=== PATIENT | female | born 1945 | race Caucasian/White ===

== ENCOUNTER 2023-12-03 12:44 | Outpatient (CLI) | payer MEDICARE, SELFPAY ==
--- NOTE | 2023-12-03 12:49 | US_ITS ---
FINAL REPORT TECHNIQUE: Sonographic images of the thyroid were obtained. CLINICAL HISTORY: H/O partial Right thyroidectomy hyperthyroidism FINDINGS: THYROID ULTRASOUND The right lobe of the thyroid is surgically absent. The isthmus measures 2.3 cm. The left lobe of the thyroid measures 4.7 cm in length. It is somewhat enlarged and has not heterogeneous echotexture. Multiple nodules are seen in the left lobe. The largest nodule measures 13 x 10 x 9 mm and is solid and isoechoic. This is consistent with a TI-RADS 3 nodule. Multiple other smaller nodules are seen. Findings are most consistent with a multinodular goiter. IMPRESSION: Right lobe of the thyroid is surgically absent. Appearance of the left lobe of the thyroid is most consistent with a multinodular goiter. 12-month follow-up is recommended. Reviewed, Interpreted and Dictated by Zac Kumari III, MD Transcribed by Zoey Eduardo Authenticated and [facility]
== END 2023-12-03 23:59 | disposition home or self-care (01) ==
LOC: RAD 12:44
PROVIDERS: PCP Family Medicine; Visit Provider Nurse Practitioner
DX: E05.90 Thyrotoxicosis, unspecified without thyrotoxic crisis or storm (principal)
CPT/HCPCS: 76536

== ENCOUNTER 2024-12-22 13:32 | Outpatient (CLI) | payer MEDICARE, SELFPAY ==
--- OUTSIDE RECORDS SUMMARY | 2024-12-22 13:35 | XMS_ITS | Continuity of Care Document ---
Author Organization [facility] Address [address] [place] [address] Care Team Providers Care Maintenance Carpenter Name Role Phone RUSSELL DESAI Primary Care Provider [phone] Assessment No assessment recorded. Plan of Treatment Reminders Order Date Submit Date Provider Last Modified By Organization Details Last Modified Time Details Appointments [facility] 60 2024 12:00P LIANA MOTTA Not available Not available Not available Lab unlisted lab - atn profile 2024 025 [facility], [address], [address], [place], [address], 11/10/2024 07:35:08 phosphory lated tau 217, QN, [place], serum or plasma 2024 025 [email or web address] [facility], [address], [address], [place], [address], 11/10/2024 07:35:08 Referral None recorded. Procedures None recorded. Surgeries None recorded. Imaging None recorded. Medication Orders risperido ne 0.25 mg tablet 2024 025 [facility], [address] [place] [address], [phone], 11/03/2024 17:03:31 Patient TargetsNo targets recorded. Patient InstructionsNo instructions recorded. Reason for Referral None Reported. Results Created Date Observation Date Name Description Value Unit Range Abnormal Flag Note LastModifiedBy Organization Detail LastModifiedTime 11/04/1911/03/2024 PHOSP HORYL ATED TAU 217, PLASM A note Unles s other cornelius noted testi ng perfo rmed at: [facility] os[facility]do [address] [place] [address] [phone] John preciado MD CLIA: [id number] Not Available [facility] (Lab Registration) [address] [place] [address] , [place], [address], 11/09/2024 02:10:17 11/04/1911/09/2024 PHOSP HORYL ATED TAU 217, PLASM A phosphorylat ed tau 217 0.17 pg/mL 0.00-0 .18 Speci men Comme nt: Test( s) 76469 1-p-t au217 Speci men Comme nt: was devel oped and its perfo rmanc e aristides cte risti cs Speci men Comme nt: deter mined by [facility]. It has not been vijaya ared or appro justin Speci men Comme nt: by the Food and Drug Admin istra tion. Clini jordan cutof f value was estab lishe d using sampl es from a patie nt jennifer calleri zed with amylo id PET data. A p-tau 217 value of >0.18 is a repor diana oral parks r for beta amylo id patho logy, a nd can be used to facil itate biolo gical ident ifica tion of Alzhe natasha' s disea se (1). p-tau 217 has also been used in clini jordan trial s to monit or patie nts on anti- amylo id thera py (2,3) . Test perfo rmed by Fujir ebio Lumip ulse chemi lumin escen t e nzyme immun oassa y (CLEI A). Value s obtai neda with diffe rent metho ds canno t be used inter suarez eably . The valid ated limit of quant ifica tion is 0.06 pg/mL . Assay detec tion limit is 0.03 pg/mL . Not Available [facility] (Lab Registration) [address] , [place], [address], 11/09/2024 02:10:17 11/04/19 25 11/09/2024 PHOSP HORYL ATED TAU 217, PLASM A footnotes Commen t . 1. Mata Daily, et al. Diag nosti c Accur acy of a Plasm a Phosp horyl ated Tau 217 Immun oassa y for Alzhe natasha Disea se Patho logy. CARMELA neuro logy (2023 ). 2. Mata Daily, et al. Diff erent ial roles of A42/4 0, p-tau 231 and p-tau 217 for Alzhe natasha' s trial selec tion and disea se monit oring . Natur e medic ine 28.12 (2021 ): 2555- 2562. 3. Anjali de guzman MJ, Shawna M, Jeromy cadet [place], et al. Asso ciati on of Sirena ireland Treat ment With Explo rator y Plasm a Bioma rkers in Early Sympt omati c Alzhe natasha Disea se: A Secon kortney Marylu sis of the TRAIL BLAZE R-ALZ Rando mized Clini jordan Trial . CARMELA Neuro l. 2021; 79(12 ):125 0-125 9. Perfo rmed at: L[facility] - [employer] [address] [facility], [facility] [place] [address] Lab Direc tor: Jg Yoo MD, Phone : [phone] Not Available [facility] (Lab Registration) [address] , [place], [address], 11/09/2024 02:10:17 11/04/19 25 11/03/2024 ATN PROFI LE information: COMMEN T Beta- amylo id 42 and Beta- amylo id 40: Plasm a beta- amylo id 1-42/ 1-40 ratio s less than or equal to 0.[address] a highe r proba bilit y of a patie nt being clini elder diagn osed with Alzhe natasha' s Disea se (AD), while value s above 0.[address] a lower proba bilit y of AD diagn osis. Preci se plasm a testi ng of Beta- amylo id 42 and Beta- amylo id 40 has demon strat ed macrina rable effec tiven ess to tradi benja l cereb rospi nal fluid testi ng and amylo id posit madeline emiss ion tomog katja (PET) scans . When asses sing the risk of AD patho logy as the under lying cause for mild cogni tive impai rment (MCI) or demen tia, it is impor tant to consi tari vario us facto rs such as medic al and famil y histo ry, nutri benja l defic iency bioma rkers , neuro imagi ng, and physi jordan, neuro logic al, and neuro psych ologi jordan exami natio ns. These tests were devel oped and their perfo rmanc e aristides cteri stics deter mined by [facility]. They have not been clear ed or appro justin by the Food and Drug Admin istra tion. * METHO DOLOG Y: Beta- amylo id 42/40 Ratio : Sysme x Chemi lumin escen ce Enzym e Immun oassa y (CLEI A) NfL and p-tau 181: Tests perfo rmed by [employer]iot Diagn ostic s Elect nito milum inesc ence Immun oassa y (ECLI A). Value s obtai neda with diffe rent metho ds canno t be used inter erick bejarano . These tests were devel oped and their perfo rmanc e aristides cteri stics deter mined by [facility]. They have not been clear ed or appro justin by the Food and Drug Admin istra tion. * p-tau 181 INFOR MATIO N: For indiv idual 0-55 years of age: 0.00- 0.95 pg/mL Refer ence inter nighat is based on a popul ation of [facility] indiv idual s aged 20 to 55 years For indiv idual great er than 55 years of age: 0.00- 0.97 pg/mL Resul ts great er than the clini jordan cut-o ff of 0.97 pg/mL in patie nts great er than 55 years of age are corre lated with Abeta amylo id patho logy as deter mined by amylo id PET imagi ng. * 1. Inter preta tion comme nts are based on a conse nsus betwe en Natio nal Insti tute for Age and the Inter natio n Worki ng Group recom menda tions for ATN panel inter preta tion publi shed by Reji et al 2017 and updat ed in Kim corley et al 2020. * Kim corley H, Franco barroso J, Cele Morris, Freeman P, Reji VILLAGRAN Jr, Nishi Hoffman oping the ATX(N ) class ifica tion for use acros s the Alzhe natasha disea se monique niuum . Marycarmen Rev Neuro l. 2020;1 7(9): 580-5 89. Reji VILLAGRAN Jr, Carmella tt DA, Cele Morris, et al. A/T/N : An unbia sed descr iptiv e class ifica tion schem e for Alzhe natasha disea se bioma rkers . Neuro logy. 2015Jan 01;87( 5):53 9-547 . Not Available [facility] ([facility]) [address] [place], [address], 11/16/2024 04:08:46 11/04/19 25 11/08/2024 ATN PROFI LE A -- beta-amyloid 42/40 ratio 0.122 >0.102 Not Available [facility] ([facility]) [address] [place], [address], 11/16/2024 04:08:46 11/04/19 25 11/08/2024 ATN PROFI LE beta-amyloid 42 27.45 pg/mL Not Available [facility] ([facility]) [address] [place], [address], 11/16/2024 04:08:46 11/04/19 25 11/08/2024 ATN PROFI LE beta-amyloid 40 225.26 pg/mL Not Available [facility] ([facility]) [address] [facility], [place], [address], 11/16/2024 04:08:46 11/04/1911/15/2024 ATN PROFI LE T -- P-lnn552 0.96 pg/mL 0.00-0 .97 Not Available [facility] ([facility]) [address] [facility], [place], [address], 11/16/2024 04:08:46 11/04/19 25 11/15/2024 ATN PROFI LE N -- nfl, plasma 7.63 pg/mL 0.00-6 .04 above high normal Not Available [facility] ([facility]) [address] [facility], [place], [address], 11/16/2024 04:08:46 11/04/19 25 11/16/2024 ATN PROFI LE atn summary[1] COMMEN T A- T- N+ A high NfL josé ntrat ion was obser justin. A nina l beta- amylo id 42/40 ratio and nina l pTau1 81 josé ntrat ion were obser justin at this time. These resul ts are not consi stent with the prese nce of Alzhe natasha' s- relat ed patho logy, but may indic ate patho logy of anoth er condi tion. Addit ional asses sment s may be neces dominguez. These tests are inten ded to be used only in the lawanda xt of clini jordan care. Not Available [facility] ([facility]) [address] [facility], [place], [address], 11/16/2024 04:08:46 11/04/1911/05/2024 P-TAU 217 [id number] COMMEN T pg/mL Test not perfo rmed. One speci men was submi tted with reque sts for multi ple tests . The reque sted testi ng requi res a separ ate speci men for each test reque sted. Test not perfo rmed. Attem pts to conta ct your facil ity were unsuc cessf ul. Clini jordan cutof f value was estab lishe d using sampl es from a patie nt cohor t aristides cteri zed with amylo id PET data. A p-tau 217 value of >0.18 is a repor diana surro gate marke r for beta amylo id patho logy, and can be used to facil itate biolo gical ident ifica tion of Alzhe natasha' s disea se (1). p-tau 217 has also been used in clini jordan trial s to monit or patie nts on anti- amylo id thera py (2,3) . Test perfo rmed by Fujir ebio Lumip ulse chemi lumin escen t enzym e immun oassa y (CLEI A). Value s obtai neda with diffe rent metho ds canno t be used inter suarez eably . The valid ated limit of quant ifica tion is 0.06 pg/mL . Assay detec tion limit is 0.03 pg/mL . Not Available [facility] [address] [place] [address], [address], 11/16/2024 04:08:47 11/04/1911/05/2024 P-TAU 217 footnotes CLINICAL DIRECTOR Not Available [facility] [address] [place] [address], [address], 11/16/2024 04:08:47 11/04/19 25 11/05/[address] PROBL EM request problem COMMEN T Test not perfo rmed. One speci men was submi tted with reque sts for multi ple tests . The reque sted testi ng requi res a separ ate speci men for each test reque sted. Test not perfo rmed. Attem pts to conta ct your facil ity were unsuc cessf ul. TEST: [id number] 0 p-tau 217 Not Available [facility] ([facility]) [address] [facility], [place], [address], 11/16/2024 04:08:48 11/19/19 25 11/15/2024 XR, knee, 3 view [facility] [address] [place] [address] Phone: Fax: Name: ANIRUDH DOW TTE Exam Date: 025 : [birth year] Age 79 years Gender : F Access ion: [id number] Physic radha: SAMIRA FLORES Facili ty: [facility] Facili ty HSV: Outpat ient Exam: KNEE 3V RT Proced ure: XR KNEE 3 VIEWS RIGHT Exam Date: 025 12:31 PM CDT Indica tion: Swelli ng of Rt. Knee Compar christina: Radiog raphs of the right knee from 2023 Techni que: 3 radiog raphic views of the right knee FINDIN GS: Expans ile intrac ortica l lytic lesion in the right tibial metaph ysis measur ing 2.3 x 1.4 x 0.9 cm, previo usly 1.8 x 0.7 x 0.9 cm. Stable 0.5 cm oval lytic lesion in the right proxim al medial tibial epiphy sis. No suprap atella r joint space effusi on. No acute fractu res or disloc ation. Mild osteoa rthrit is, not signif icantl y progre ssed. IMPRES MIRTA: 1. No acute fractu res or disloc ations . 2. Interv al growth of an expans ile intrac ortica l lytic lesion in the right tibial metaph ysis. Differ ential diagno sis includ es plasma cytoma , enchon droma a nonoss ifying fibrom a. Recomm end furthe r evalua tion with MRI with and withou t contra st. 3. Stable 0.5 cm oval lytic lesion in the right proxim al medial tibial epiphy sis, which can be better evalua diana at the time of the MRI. 4. Mild osteoa rthrit is withou t signif icant interv al progre ssion. Electr onical ly signed by: Deena bennett MD 2024 08:47 AM EDT RP Workst ation: [id number] Dictat ed By: Deena Mera Transc ribed By: Transc ribed On: 025 1:31 PM Electr onical ly signed by: Deena Mera 025 Thank you for referr ANIRUDH Armstrong TTE to [facility]. Legall y authen ticate d by EBONY IRBY MD 11-15 13:31: 59 CC'ed Logic: Orderi ng Provid er: LATOYA HOGAN CC Provid er: AMBURG EY TAFFAN Y Attend ing Provid er: LATOYA HOGAN Referr ing Provid er: LATOYA HOGAN Admitt ing Provid er: LATOYA HOGAN [facility] (Radiology) [address] [place] [address] , [place], [address], 11/22/2024 16:41:45 Result Notes None recorded. Problems Name Problem SNOMED Code Status Onset Date Resolution Date Notes Provider Name and Address Organization Details Recorded Time Cat scratch injury 762030622 Active Ang Hutchinso n null, [place] - [facility] - [place] & [place] 5 14:03:06 Cellulitis of hand 01223487 Active Ang Hutchinso n [place], [place] [facility] [place] & [place] 5 14:03:06 Essential hypertensio n 64592296 Active 2023 John Tesfaye null, [place] [facility] [place] & [place] 4 12:20:37 Graves' disease 709754993 Active 2023 John Tesfaye null, [place] [facility] [place] & [place] 4 12:20:46 Chronic bronchitis 13893315 Active 2023 John Tesfaye null, [place] [facility] [place] & [place] 4 12:20:28 Hyperlipide aracelis 08228643 Active 2023 John Tesfaye null, [place] [facility] [place] & [place] 4 12:20:50 Restless legs 68063135 Active 2023 John Tesfaye null, [place] [facility] - [place] & [place] 4 12:20:58 Overactive urinary bladder 114464423 Active 2023 John Tesfaye null, [place] - [facility] - [facility] & [place] 4 12:20:55 Gastroesoph ageal reflux disease without esophagitis 560651025 Active 2023 John Tesfaye null, [place] [facility] - [facility] & [place] 4 12:20:42 Chronic vertigo 0748148907845 5 Active 2023 John Rivasles null, [place] [facility] - [facility] & [place] 4 12:20:32 Osteopenia 774077362 Active 2023 John Rivasles null, [place] - [facility] - [facility] & [place] 4 14:42:40 Generalized anxiety disorder 47485162 Active 2023 John Tesfaye null, [place] - [facility] - [facility] & [place] 4 12:18:31 Osteoarthri tis of right knee joint 6229664915169 00 Active 2023 John Tesfaye null, [place] - [facility] - [place] & [place] 4 12:18:34 Eczema 14703031 Active 2023 Qasim Velasquez MD [address] [place] [address], [phone] , [place] - [facility] - [place] & [place] 4 11:05:16 Problem Notes None recorded. Procedures Surgical History Date Name Laterality Status Provider Name and Address Organization Details Recorded Time 025 Suture Removal completed RUSSELL DESAI NP [address] [place] [address], [phone], [place] - [facility] - [place] & [place] 10/01/2024 12:43:21 025 Medicare Annual Wellness Visit Health Risk Assessment completed Ang Valladares [place] - [facility] - [place] & [place] 09/07/2024 14:21:11 019 Cholecystectomy completed Za Campos [place] - [facility] - [place] & [place] 12/18/2023 12:29:03 019 Laparoscopic proc completed Jenny Yulisa [facility] & [place] 05/21/2023 14:58:36 016 vaginal hysterectomy completed Jenny [facility] & [place] 05/21/2023 14:58:06 014 removal of ovarian cyst completed Jenny [facility] & [place] 05/21/2023 14:57:53 012 Colonoscopy completed Za MORALES [facility] & [place] 12/18/2023 12:28:42 001 lobectomy of thyroid gland [facility] [place] 05/21/2023 14:57:28 Imaging Results None recorded. Procedure Notes None recorded. Medical Equipment None Reported. Allergies Allergen ID Allergen Name Allergen Category Reaction Reaction Severity Criticality Documentation Date Start Date Code Code System Note Provider Name and Address Organization Details Recorded Time [id number] Substance with sulfonami de structure and antibacte rial mechanism of action (substanc e) medicatio n Not available Not available Not available 05/21/2023 97663 8003 SNOMED Jenny Márquez null, [facility] & [place] 3 14:56:34 767423 lisinopri l medicatio n Not available Not available Not available 08/27/2023 14507 RxNorm RUSSELL DESAI NP [address] [place] [address], [phone] & [place] 4 14:34:00 Medications Name Sig Start Date Stop Date Status Note LastModified by Organization Details LastModified Time Prescriptio n - Renewal active Not Available Not Available Not Available tolterodine ER 2 mg capsule,ext ended release 24 hr TAKE ONE CAPSULE BY MOUTH ONCE DAILY 09/07 completed Not Available Not Available Not Available hydrocortis one 5 mg tablet Take 5 mg by oral route. 09/07 completed Not Available Not Available Not Available amoxicillin 500 mg capsule 09/07 completed Not Available Not Available Not Available cefazolin 1 gram solution for injection 1 g by injection route. 08/15 completed Not Available Not Available Not Available promethazin e-DM 6.25 mg-15 mg/5 mL oral syrup Take 5 mL BY MOUTH every 4 hours as needed. 01/07 completed Not Available Not Available Not Available azelastine 0.05 % eye drops place ONE drop IN EACH EYE TWICE DAILY DIRECTED 11/03 completed Not Available Not Available Not Available nystatin 100,000 unit/mL oral suspension Take 5 mL( 1 TEASPOONF UL) 4 times a day by oral route for 7 days. 09/07 completed Not Available Not Available Not Available acetaminoph en 325 mg tablet 650 mg by oral route. 08/17 completed Not Available Not Available Not Available ropinirole 1 mg tablet 5 mg by oral route. 08/17 completed Not Available Not Available Not Available ketoconazol e 2 % shampoo Massage into scalp 2-3 times a week. Let sit a few minutes before rinsing. Follow with regular shampoo 06/05 completed Not Available Not Available Not Available cefepime 1 gram solution for injection 1 g by injection route. 08/16 completed Not Available Not Available Not Available Detrol 2 mg tablet 2 mg by oral route. 08/17 completed Not Available Not Available Not Available trazodone 50 mg tablet 50 mg by oral route. 08/17 completed Not Available Not Available Not Available propylthiou racil 50 mg tablet take 1 tablet twice daily every other day. 2024 active Not Available Not Available Not Avai lable azithromyci n 250 mg tablet TAKE 2 TABLETS BY MOUTH ON DAY 1, THEN TAKE 1 TABLET DAILY ON DAYS 2-5 06/05 completed Not Available Not Available Not Available pravastatin 40 mg tablet TAKE ONE TABLET BY MOUTH ONCE DAILY active Not Available Not Available No t Available fluconazole 150 mg tablet TAKE 1 tablet once and repeat in 7 days if needed 09/07 completed Not Available Not Available Not Available metoprolol succinate ER 50 mg tablet,exte nded release 24 hr 50 mg by oral route. 08/17 completed Not Available Not Available Not Available tolterodine ER 4 mg capsule,ext ended release 24 hr Take 1 capsule every day by oral route. active Not Available Not Available No t Available medroxyprog esterone 2.5 mg tablet take 1/2 tablet daily 09/07 completed Not Available Not Available Not Available hydrocodone 5 mg-acetamin ophen 325 mg tablet 1 tablet by oral route. 08/17 completed Not Available Not Available Not Available fluticasone propionate 0.05 % topical cream Apply twice daily to the lesions on face for 2 weeks. Stop for 1 week. Repeat as needed for flares. 06/05 completed Not Available Not Available Not Available fluconazole 200 mg tablet Take two tablets by mouth on day one then one tablet weekly for 4 weeks. 06/05 completed Not Available Not Available Not Available lisinopril 20 mg tablet TAKE TWO TABLETS BY MOUTH EVERY DAY active Not Available Not Available No t Available prednisone 20 mg tablet TAKE 1 tab(s) orally twice a day FOR 5 days 06/05 completed Not Available Not Available Not Available Children's Aspirin 81 mg chewable tablet 81 mg by oral route. 08/17 completed Not Available Not Available Not Available risperidone 0.25 mg tablet TAKE ONE TABLET BY MOUTH TWICE DAILY 2024 active Not Available Not Available Not Avai lable sulfamethox azole 800 mg-trimetho prim 160 mg tablet Take 1 tablet every 12 hours by oral route for 7 days. 08/26 completed Not Available Not Available Not Available vancomycin 1,000 mg intravenous injection 1000 mg by intraven. route. 08/15 completed Not Available Not Available Not Available triamcinolo ne acetonide 0.1 % topical cream APPLY A THIN LAYER TO THE AFFECTED AREA(S) BY TOPICAL ROUTE 2 TIMES PER DAY for 2 weeks. 10/06 completed Not Available Not Available Not Available ketorolac 30 mg/mL (1 mL) injection solution 30 mg by injection route. 08/15 completed Not Available Not Available Not Available hydralazine 20 mg/mL injection solution 20 mg by injection route. 08/17 completed Not Available Not Available Not Available ketorolac 0.5 % eye drops INSTILL 1 DROP INTO AFFECTED EYE(S) BY OPHTHALMI C ROUTE 4 TIMES PER DAY 01/07 completed Not Available Not Available Not Available meloxicam 7.5 mg tablet Take 1 tablet every day by oral route. 09/07 completed Not Available Not Available Not Available amoxicillin 875 mg tablet take 1 tab(s) orally every 12 hours for 10 days 06/05 completed Not Available Not Available Not Available famotidine 20 mg tablet Take 1 tablet twice a day by oral route for 14 days. 08/26 completed Not Available Not Available Not Available meclizine 25 mg tablet take 1 tablet ORAL route every 8 hours As needed 09/07 completed Not Available Not Available Not Available benzonatate 100 mg capsule take 1 capsule ORAL route every 8 hours As needed 06/05 completed Not Available Not Available Not Available levothyroxi ne 50 mcg tablet Take 50 microgram s by oral route. 09/07 completed Not Available Not Available Not Available pantoprazol e 40 mg tablet,nan yed release take 1 tab(s) orally once a day for 30 day(s) active Not Available Not Available No t Available simvastatin 20 mg tablet 40 mg by oral route. 08/17 completed Not Available Not Available Not Available erythromyci n 5 mg/gram (0.5 %) eye ointment APPLY 1 CM RIBBON INTO THE LOWER CONJUNCTI NIGHAT SAC(S) IN THE AFFECTED EYE(S) BY OPHTHALMI C ROUTE at bedtime for 5 days 10/06 completed Not Available Not Available Not Available ropinirole 0.5 mg tablet take 1 tablet 1 to 3 hours before bedtime Once a day active Not Available Not Available No t Available lisinopril 10 mg tablet take 1 tab(s) by mouth once a day 30 day(s) 08/13 completed Not Available Not Available Not Available polymyxin B sulfate 10,000 unit-trimet hoprim 1 mg/mL eye drops INSTILL 1 DROP INTO AFFECTED EYE(S) BY OPHTHALMI C ROUTE EVERY 6 HOURS 11/03 completed Not Available Not Available Not Available losartan 25 mg tablet Take 1 tablet every day by oral route. 09/02 completed Not Available Not Available Not Available ibuprofen 400 mg tablet 400 mg by oral route. 08/17 completed Not Available Not Available Not Available nicotine 21 mg/24 hr daily transdermal patch 21 mg by transderm . route. 08/17 completed Not Available Not Available Not Available lidocaine HCl 20 mg/mL (2 %) injection solution 20 mL by injection route. 08/15 completed Not Available Not Available Not Available sodium chloride 0.9 % intravenous solution 250 mL by intraven. route. 08/15 completed Not Available Not Available Not Available metoprolol succinate ER 25 mg tablet,exte nded release 24 hr Take 1 tablet every day by oral route at bedtime. active Not Available Not Available No t Available ibuprofen 600 mg tablet TAKE ONE TABLET BY MOUTH TWICE DAILY NEEDED 09/07 completed Not Available Not Available Not Available levofloxaci n 500 mg tablet take 1 tablet ORAL route daily for 8-10 days 06/05 completed Not Available Not Available Not Available albuterol sulfate HFA 90 mcg/actuati on aerosol inhaler inhale 2 puffs INHALATIO N route every 4 hours As needed 01/07 completed Not Available Not Available Not Available ropinirole 5 mg tablet Take 5 mg by oral route. 09/07 completed Not Available Not Available Not Available hydroxyzine HCl 10 mg tablet TAKE ONE TABLET BY MOUTH THREE TIMES DAILY FOR 10 DAYS 11/03 completed Not Available Not Available Not Available clobetasol 0.05 % scalp solution Apply to scalp nightly up 3 weeks. Stop for 1 week. Repeat as needed. 06/05 completed Not Available Not Available Not Available ondansetron 4 mg disintegrat ing tablet 4 mg by oral route. 08/17 completed Not Available Not Available Not Available fluticasone propionate 50 mcg/actuati on nasal spray,suspe nsion 2 sprs by nasal route. 08/17 completed Not Available Not Available Not Available doxycycline hyclate 100 mg tablet Take 1 tablet by oral route. 09/07 completed Not Available Not Available Not Available amoxicillin 875 mg-potassiu m clavulanate 125 mg tablet TAKE ONE TABLET BY MOUTH EVERY TWELVE HOURS FOR 10 DAYS 09/07 completed Not Available Not Available Not Available tobramycin 0.3 %-dexametha sone 0.1 % eye drops,suspe nsion INSTILL INTO AFFECTED EYE 4 TIMES A DAY FOR 7 DAYS 06/05 completed Not Available Not Available Not Available enoxaparin 40 mg/0.4 mL subcutaneou s syringe 40 mg by sub-q route. 08/17 completed Not Available Not Available Not Available Mucinex 600 mg tablet, extended release Take 600 mg by oral route. 09/07 completed Not Available Not Available Not Available Premarin 0.3 mg tablet TAKE ONE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
--- OUTSIDE RECORDS SUMMARY | 2024-12-22 13:35 | XMS_ITS | Clinical Summary ---
[facility] [address] [place] [address] Care Team Providers Care Landscape Horticulture Instructor Name Role Phone Rik Nunez APRN Primary Care Provi tari Allergies No known active allergies Medications tolterodine LA (DETROL LA) 2 MG 24 hr capsule Take 1 capsule by mouth Daily. Active propylthiouraci l (PTU) 50 MG tablet Take 1 tablet by mouth Daily. Active pantoprazole (PROTONIX) 40 MG EC tablet Take 1 tablet by mouth Daily. Active lisinopril (PRINIVIL,ZESTR IL) 20 MG tablet Take 1 tablet by mouth 2 (Two) Times a Day. Active metoprolol succinate XL (TOPROL-XL) 25 MG 24 hr tablet Take 1 tablet by mouth Every Night. 04/16/2024 Active hydrOXYzine (ATARAX) 10 MG tablet Take 1 tablet by mouth Every Night. 04/13/2024 Active rOPINIRole (REQUIP) 0.5 MG tablet Take 1 tablet by mouth Daily. Active pravastatin (PRAVACHOL) 40 MG tablet Take 1 tablet by mouth Daily. Active Premarin 0.3 MG tablet Take 1 tablet by mouth Daily. Active tolterodine LA (DETROL LA) 4 MG 24 hr capsule Take 1 capsule by mouth Daily. Active Active Problems Problem Noted Date Diagnosed Date Multiple thyroid nodules 04/28/2024 Assessment & Plan (04/28/2024 2:40 PM EST): She has multiple small nodules. Too small to cause symptoms. These don't meet criteria for FNA. We discussed observation or completion thyroidectomy. Hyperthyroidism 04/28/2024 Assessment & Plan (04/28/2024 2:39 PM EST): She has h/o hyperthyroidism apparently. She is on PTU. Check labs today. Will send note about results. Recent CMP and CBC were okay. Maybe having some eye issues related to Graves' disease. We discussed other treatment options including completion thyroidectomy or I131. I would be reluctant to use I131 due to eye issues. She would consider thyroidectomy. Family History Medical History Relation Name Comments No Known Problems Brother brain aneurysm Father Breast cancer Mother Dementia Mother Heart failure Mother Stroke Mother Asthma Sister Cancer Sister Hyperthyroidism Sister Osteoporosis Sister Relation Name Status Comments Brother Father Mother Sister Alive Social History Tobacco Use Types Packs/Day Years Used Date Smoking Tobacco: Former Cigarettes Q uit: 04/28/1999 Passive Smoke Exposure: Past Smokeless Tobacco: Never Tobacco Cessation:Counseling Given: No Alcohol Use Standard Drinks/Week Comments Not Currently 0 (1 standard drink = 0.6 oz pur e alcohol) Comments Unknown Sex and Gender Information Value Date Recorded Sex Assigned at Not on file Legal Sex Female 1:06 PM EDT Gender Identity Not on file Sexual Orientation Not on file Last Filed Vital Signs Vital Sign Reading Time Taken Comments Blood Pressure 126/66 04/28/2024 2:05 PM EST Pulse 62 04/28/2024 2:05 PM EST Temperature - - Respiratory Rate - - Oxygen Saturation 97% 04/28/2024 2:05 PM EST Inhaled Oxygen Concentration - - Weight 39.6 kg (87 lb 6.4 oz) 04/28/2024 2:05 PM EST Height 146.7 cm (4' 9.75 ) 04/28/2024 2:05 PM ES T Body Mass Index 18.43 04/28/2024 2:05 PM EST Plan of Treatment Health Maintenance Due Date Last Done Comments DXA SCAN 1945 Pneumococcal Vaccine 50+ (1 of 1 - PCV) 1996 ZOSTER VACCINE (1 of 2) 1996 RSV Vaccine - Adults (1 - 1- dose 75+ series) 2021 COVID-19 Vaccine (2 - season) 02/01/202407/2020 ANNUAL WELLNESS VISIT 04/28/2024 HEPATITIS C SCREENING 04/28/2024 INFLUENZA VACCINE 03/02/2025 02/13/2023, , 04/07/2017 TDAP/TD VACCINES (2 - Td or Tdap) 02/13/2033 023 Insurance MEDICARE ADVANTAGE HMO Care Teams Landscape Horticulture Instructor Relationship Specialty Start Date End Date Rik Nunez APRN [address] [id number] PCP - General Nurse Practitioner 04/28/24
--- OUTSIDE RECORDS SUMMARY | 2024-12-22 13:35 | XMS_ITS | Clinical Summary ---
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 7:02 PM EDT us External Provider IMG CT PROCEDURES Final Result * XR MSK OUTSIDE IMAGES (09/23/2024 6:25 PM EDT) Anatomical Region Laterality Modality Radiographic Milena ging 09/23/2024 6:25 PM EDT us External Provider IMG XR PROCEDURES Final Result * XR OUTSIDE IMAGES (09/23/2024 6:23 PM EDT) Only the most recent of3 resultswithin the time period is included. Anatomical Region Laterality Modality Radiographic Milena ging 09/23/2024 6:23 PM EDT us External Provider IMG XR PROCEDURES Final Result from Last 3 Mon[place] [id number] [employer] Advance Directives * Full Code (Latest Code Status on File) Date Activated Date Inactivated Comments 09/24/2024 4:01 AM 09/26/2024 6:44 PM Question Answer Comments I have reviewed the capacity from the link above and, if needed, have updated to appropriate status: Yes Care Teams Neonatal Critical Care Nurse Relationship Specialty Start Date End Date Rik Nunez, [employer] [address] [place] [id number] PCP - General 09/27/24
--- OUTSIDE RECORDS SUMMARY | 2024-12-22 13:35 | XMS_ITS | Data Portability ---
Author Organization [place] - [facility] [place] Address [address] [place] [address] Care Team Providers Care Tank Builder And Erector Name Role Phone KARIN DESAIREJI Primary Care Provider Assessment Encounter Date Assessment Date Assessment LastModified by Organization Details LastModified Time 10/27/2024 10/27/2024 -reviewed hospital records -reviewed neuroimaging -patient doing well; no indication for further neurologic testing at this time -follow up as needed [email or web address] Not available 10/27/2024 14:05:36 Plan of Treatment Reminders Order Date Submit Date Provider Last Modified By Organization Details Last Modified Time Details Appointments MENTAL HEALTH 60 2024 12:00P M ANCA MAYA, PMHNP Not available Not available Not available Lab unlisted lab - atn profile 2024 025 [email or web address] [facility], [address], [place], [address], 11/10/2024 07:35:08 phosphory lated tau 217, QN, [place], serum or plasma 2024 025 [facility], [address], [place], [address], 11/10/2024 07:35:[address] referral 2024 025 [email or web address] Dalton Silva MD, [address] [place] [address] , [address], [place], [address], 11/08/2024 10:21:21 Procedures None recorded. Surgeries None recorded. Imaging XR, knee, 3 view - Right knee 2024 025 [facility] (Scheduling), [address] [place], [address], 11/18/2024 08:53:34 Medication Orders risperido ne 0.25 mg tablet 2024 025 [facility], [address] , [place], [place], [id number], 11/03/2024 17:03:31 Patient TargetsNo targets recorded. Patient InstructionsNo instructions recorded. Reason for Referral Neurologist Referral for Alt ered mental status Referring Physician: Russell Desai, Family Medicine, Encounter Date: 10/06/2024 Results Created Date Observation Date Name Description Value Unit Range Abnormal Flag Note LastModifiedBy Organization Detail LastModifiedTime 09/08/19 25 09/07/2024 CBC AUTO W DIFF WBC 7.6 10 4.5-11 .5 Not Available [facility] (Lab Registration) [address] [place], [address], 09/07/2024 16:54:56 09/08/19 25 09/07/2024 CBC AUTO W DIFF RBC 4.41 10 4.25-5 .57 Not Available [facility] (Lab Registration) [address] [place], [address], 09/07/2024 16:54:56 09/08/19 25 09/07/2024 CBC AUTO W DIFF HGB 13.5 g/dL 12.0-1 5.7 Not Available [facility] (Lab Registration) [address] [place], [address], 09/07/2024 16:54:56 09/08/19 25 09/07/2024 CBC AUTO W DIFF HCT 41.1 % 36.0-4 7.0 Not Available [facility] (Lab Registration) [address] [place], [address], 09/07/2024 16:54:56 09/08/19 25 09/07/2024 CBC AUTO W DIFF MCV 93.2 fL 80-95 Not Available [facility] (Lab Registration) [address] [place], [address], 09/07/2024 16:54:56 09/08/19 25 09/07/2024 CBC AUTO W DIFF MCH 30.6 pg 27.0-3 4.0 Not Available [facility] (Lab Registration) [address] [place], [address], 09/07/2024 16:54:56 09/08/19 25 09/07/2024 CBC AUTO W DIFF MCHC 32.8 g/dL 32.0-3 6.0 Not Available [facility] (Lab Registration) [address] [place], [address], 09/07/2024 16:54:56 09/08/19 25 09/07/2024 CBC AUTO W DIFF platelet count 150 10 150-45 0 Not Available [facility] (Lab Registration) [address] [place], [address], 09/07/2024 16:54:56 09/08/19 25 09/07/2024 CBC AUTO W DIFF RDW 12.7 % 12.3-1 5.1 Not Available [facility] (Lab Registration) [address] [place], [address], 09/07/2024 16:54:56 09/08/19 25 09/07/2024 CBC AUTO W DIFF MPV 10.6 fL 7.4-10 .4 high Not Available [facility] (Lab Registration) [address] [place], [address], 09/07/2024 16:54:56 09/08/19 25 09/07/2024 CBC AUTO W DIFF granulocyte% 55.9 % 40-75 Not Available [facility] (Lab Registration) [address] [place], [address], 09/07/2024 16:54:56 09/08/19 25 09/07/2024 CBC AUTO W DIFF lymphocyte% 30.1 % 15-57 Not Available [facility] (Lab Registration) [address] [place], [address], 09/07/2024 16:54:56 09/08/19 25 09/07/2024 CBC AUTO W DIFF monocyte% 7.1 % 4.0-12 .0 Not Available [facility] (Lab Registration) [address] [place], [address], 09/07/2024 16:54:56 09/08/19 25 09/07/2024 CBC AUTO W DIFF eosinophil% 5.9 % 0.0-4. 0 high Not Available [facility] (Lab Registration) [address] [place], [address], 09/07/2024 16:54:56 09/08/19 25 09/07/2024 CBC AUTO W DIFF basophil% 0.7 % 0.0-1. 0 Not Available [facility] (Lab Registration) [address] [place], [address], 09/07/2024 16:54:56 09/08/19 25 09/07/2024 CBC AUTO W DIFF immature granulocytes % 0.3 % 0.0-0. 8 Not Available [facility] (Lab Registration) [address] [place], [address], 09/07/2024 16:54:56 09/08/19 25 09/07/2024 CBC AUTO W DIFF granulocyte# 4.24 10 Not Available [facility] (Lab Registration) [address] [place], [address], 09/07/2024 16:54:56 09/08/19 25 09/07/2024 CBC AUTO W DIFF lymphocyte# 2.28 10 Not Available [facility] (Lab Registration) [address] [place], [address], 09/07/2024 16:54:56 09/08/19 25 09/07/2024 CBC AUTO W DIFF monocyte# 0.54 10 Not Available [facility] (Lab Registration) [address], [place], [address], 09/07/2024 16:54:56 09/08/19 25 09/07/2024 CBC AUTO W DIFF eosinophil# 0.45 10 Not Available [facility] (Lab Registration) [address] [place], [address], 09/07/2024 16:54:56 09/08/19 25 09/07/2024 CBC AUTO W DIFF basophil# 0.05 10 Not Available [facility] (Lab Registration) [address] [place], [address], 09/07/2024 16:54:56 09/08/19 25 09/07/2024 CBC AUTO W DIFF immature granulocytes # 0.02 10 Not Available [facility] (Lab Registration) [address] [place], [address], 09/07/2024 16:54:56 09/08/19 25 09/07/2024 CBC AUTO W DIFF manual differential NO Not Available [facility] (Lab Registration) [address] , [place], [address], 09/07/2024 16:54:56 09/08/19 25 09/07/2024 CBC AUTO W DIFF note Unles s other cornelius noted testi ng perfo rmed at: [facility] [address] [place] [address] [phone] John preciado MD CLIA: [id number] Not Available [facility] (Lab Registration) [address] [place], [address], 09/07/2024 16:54:56 09/08/19 25 09/07/2024 HEMOG LOBIN A1C glycosylated hemoglobin A1C 5.4 % 4.5-6. 2 Not Available [facility] (Lab Registration) [address] [place], [address], 09/07/2024 17:19:49 09/08/19 25 09/07/2024 HEMOG LOBIN A1C estimated average glucose 108 mg/dL 82-131 Not Available [facility] (Lab Registration) [address] [place], [address], 09/07/2024 17:19:49 09/08/19 25 09/07/2024 HEMOG LOBIN A1C note Unles s other cornelius noted testi ng perfo rmed at: [facility] [address] [place] [address] [phone] John preciado MD CLIA: [id number] Not Available [facility] (Lab Registration) [address] [place], [address], 09/07/2024 17:19:49 09/08/19 25 09/07/2024 MAGNE SIUM magnesium 2.1 mg/dL 1.8-2. 4 Not Available [facility] (Lab Registration) [address] [place], [address], 09/07/2024 20:47:35 09/08/19 25 09/07/2024 MAGNE SIUM note Unles ozzy other cornelius noted testi ng perfo rmed at: [facility] [address] [place] [address] [phone] John preciado MD CLIA: [id number] Not Available [facility] (Lab Registration) [address] [place], [address], 09/07/2024 20:47:35 09/08/19 25 09/07/2024 COMP METAB OLIC PANEL sodium 142 mmol/ L 136-14 5 Not Available [facility] (Lab Registration) [address] [place], [address], 09/07/2024 20:47:36 09/08/19 25 09/07/2024 COMP METAB OLIC PANEL potassium 4.0 mmol/ L 3.5-5. 1 Not Available [facility] (Lab Registration) [address] [place], [address], 09/07/2024 20:47:36 09/08/19 25 09/07/2024 COMP METAB OLIC PANEL chloride 104 mmol/ L 98-107 Not Available [facility] (Lab Registration) [address] [place], [address], 09/07/2024 20:47:36 09/08/19 25 09/07/2024 COMP METAB OLIC PANEL carbon dioxide 29 mmol/ L 21-32 Not Available [facility] (Lab Registration) [address] [place], [address], 09/07/2024 20:47:36 09/08/19 25 09/07/2024 COMP METAB OLIC PANEL anion gap 9.0 Not Available [facility] (Lab Registration) [address] [place], [address], 09/07/2024 20:47:36 09/08/19 25 09/07/2024 COMP METAB OLIC PANEL glucose 87 mg/dL 70-110 Not Available [facility] (Lab Registration) [address] [place], [address], 09/07/2024 20:47:36 09/08/19 25 09/07/2024 COMP METAB OLIC PANEL blood urea nitrogen 12 mg/dL 7-18 Not Available [facility] (Lab Registration) [address] [place], [address], 09/07/2024 20:47:36 09/08/19 25 09/07/2024 COMP METAB OLIC PANEL creatinine 0.9 mg/dL 0.6-1. 0 Not Available [facility] (Lab Registration) [address] [place], [address], 09/07/2024 20:47:36 09/08/19 25 09/07/2024 COMP METAB OLIC PANEL BUN/creatini ne ratio 13.3 9-21 Not Available [facility] (Lab Registration) [address], [place], [address], 09/07/2024 20:47:36 09/08/19 25 09/07/2024 COMP METAB OLIC PANEL estimated glom filtration rate 65 mL/mi n >60- GFR LIMIT ATION : The eGFR equat ion CKD-E PI 2020 is not appli cable for pedia tric patie nts or great er than 90 years of age. The follo wing condi tions may alter the GFR resul t: extre mes in body size, malnu triti on or obesi ty, skele osvaldo muscl e disea se, parap legia or quadr ipleg ia, veget jesusita diet or rapid ly suarez ing kiney funct ion. Not Available [facility] (Lab Registration) [address], [place], [address], 09/07/2024 20:47:36 09/08/19 25 09/07/2024 COMP METAB OLIC PANEL osmolality (calculated) 294 mOsm/ kg 275-30 1 OSMOL ALITY IS A CALCU LATIO N UTILI ZING THE SERUM /PLAS MA SODIU M, GLUCO SE AND UREA NITRO GEN (BUN) LEVEL S. FOR THE MOST ACCUR ATE RESUL T A MEASU RED SERUM OSMOL ALITY IS SUGGE STED. Not Available [facility] (Lab Registration) [address], [place], [address], 09/07/2024 20:47:36 09/08/19 25 09/07/2024 COMP METAB OLIC PANEL total protein 7.2 g/dL 6.4-8. 2 Not Available [facility] (Lab Registration) [address], [place], [address], 09/07/2024 20:47:36 09/08/19 25 09/07/2024 COMP METAB OLIC PANEL albumin 3.7 g/dL 3.4-5. 0 Not Available [facility] (Lab Registration) [address] [place], [address], 09/07/2024 20:47:36 09/08/19 25 09/07/2024 COMP METAB OLIC PANEL calcium 9.8 mg/dL 8.5-10 .1 Not Available [facility] (Lab Registration) [address] [place], [address], 09/07/2024 20:47:36 09/08/19 25 09/07/2024 COMP METAB OLIC PANEL corrected calcium 10.0 mg/dL 8.5-10 .1 Not Available [facility] (Lab Registration) [address] [place], [address], 09/07/2024 20:47:36 09/08/19 25 09/07/2024 COMP METAB OLIC PANEL bilirubin total 0.4 mg/dL 0.4-1. 5 Not Available [facility] (Lab Registration) [address] [place], [address], 09/07/2024 20:47:36 09/08/19 25 09/07/2024 COMP METAB OLIC PANEL AST (SGOT) 18 U/L 15-37 Not Available [facility] (Lab Registration) [address] [place], [address], 09/07/2024 20:47:36 09/08/19 25 09/07/2024 COMP METAB OLIC PANEL ALT (SGPT) 23 U/L 12-78 Not Available [facility] (Lab Registration) [address] [place], [address], 09/07/2024 20:47:36 09/08/19 25 09/07/2024 COMP METAB OLIC PANEL alk phosphatase 102 U/L 53-141 Not Available [facility] (Lab Registration) [address] [place], [address], 09/07/2024 20:47:36 09/08/19 25 09/07/2024 COMP METAB OLIC PANEL note Unles s other cornelius noted testi ng perfo rmed at: [facility] [address] [place] [phone] John preciado MD CLIA: [id number] Not Available [facility] (Lab Registration) [address] , [place], [address], 09/07/2024 20:47:36 09/08/19 25 09/07/2024 THYRO ID STIMU LATIN G HORMO NE thyroid stimulating hormone 3.78 mIU/m L 0.34-4 .80 Not Available [facility] (Lab Registration) [address] , [place], [address], 09/07/2024 20:47:37 09/08/19 25 09/07/2024 THYRO ID STIMU LATIN G HORMO NE note Amee preciado other cornelius noted testi ng perfo rmed at: [facility] [address] [place] [phone] John preciado MD CLIA: [id number] Not Available [facility] (Lab Registration) [address] , [place], [address], 09/07/2024 20:47:37 09/08/19 25 09/07/2024 T4 FREE T4,free 0.79 NG/dL 0.76-1 .46 Effec tive today 013 new Refer ence Range . Not Available [facility] (Lab Registration) [address] [place], [address], 09/07/2024 20:59:33 09/08/19 25 09/07/2024 T4 FREE note Amee s other cornelius noted testi ng perfo rmed at: [facility] [address] [place] [address] [phone] John preciado MD CLIA: [id number] Not Available [facility] (Lab Registration) [address] [place], [address], 09/07/2024 20:59:33 09/08/19 25 09/07/2024 LIPID PANEL note Unles s other cornelius noted testi ng perfo rmed at: [facility] [address] [place] [address] [phone] John preciado MD CLIA: [id number] Not Available [facility] (Lab Registration) [address] [place], [address], 09/08/2024 04:01:01 09/08/19 25 09/08/2024 LIPID PANEL triglyceride 42 mg/dL 20-200 The Natio nal Jaclyn stero l Educa tion Progr am (NCEP ) has set the follo wing guide lines for Fasti ng Trigl yceri victor manuel: JOE L: <150 mg/dL BORDE RLINE HIGH: 150 - 199 mg/dL HIGH: 200 - 499 mg/dL VERY HIGH: > or =500 mg/dL Not Available [facility] (Lab Registration) [address] [place], [address], 09/08/2024 04:01:01 09/08/19 25 09/08/2024 LIPID PANEL cholesterol 191 mg/dL 0-200 The Natio nal Jaclyn stero l Educa tion Progr am (NCEP ) has set the follo wing guide lines for Fasti ng Jaclyn stero l: CASA ABLE: <200 mg/dL BORDE RLINE HIGH: 200 - 239 mg/dL HIGH: > or =240 mg/dL Not Available [facility] (Lab Registration) [address] [place], [address], 09/08/2024 04:01:01 09/08/19 25 09/08/2024 LIPID PANEL HDL cholesterol 92 mg/dL 60- The Natio nal Jaclyn stero l Educa tion Progr am (NCEP ) has set the follo wing guide lines for Fasti ng HDL Jaclyn stero l: LOW HDL: <40 mg/dL JOE L: 40 - 60 mg/dL CASA ABLE: >60 mg/dL Not Available [facility] (Lab Registration) [address] [place], [address], 09/08/2024 04:01:01 09/08/19 25 09/08/2024 LIPID PANEL LDL calculated 91 mg/dL 100- low The Natio nal Jaclyn stero l Educa tion Progr am (NCEP ) has set the follo wing guide lines for Fasti ng LDL Jaclyn stero l: OPTIM AL: < 100 mg/dL LOW RISK: 100 - 129 mg/dL BORDE RLINE HIGH: 130 - 159 mg/dL HIGH: 160 - 189 mg/dL VERY HIGH: > or = 190 mg/dL Not Available [facility] (Lab Registration) [address] [place], [address], 09/08/2024 04:01:01 09/08/19 25 09/08/2024 LIPID PANEL chol/HDL ratio 2 -5 Not Available [facility] (Lab Registration) [address] [place], [address], 09/08/2024 04:01:01 09/08/19 25 09/07/2024 urina lysis , dipst ick Leukocytes (reference range) negati ve Not Available [address] [place], [address], 09/07/2024 14:21:49 09/08/19 25 09/07/2024 urina lysis , dipst ick Nitrite (reference range:) negati ve Not Available [address] [place], [address], 09/07/2024 14:21:49 09/08/19 25 09/07/2024 urina lysis , dipst ick Urobilinogen (reference range) 0.2 Not Available [address] [place], [address], 09/07/2024 14:21:49 09/08/19 25 09/07/2024 urina lysis , dipst ick Protein (reference range) negati ve Not Available [address] [place], [address], 09/07/2024 14:21:49 09/08/19 25 09/07/2024 urina lysis , dipst ick pH (reference range 5-8.5) 7.0 Not Available [address] [place], [address], 09/07/2024 14:21:49 09/08/19 25 09/07/2024 urina lysis , dipst ick Blood (reference range:) negati ve Not Available [address] [place], [address], 09/07/2024 14:21:49 09/08/19 25 09/07/2024 urina lysis , dipst ick Specific [place] (reference range) 1.010 Not Available [address] [place], [address], 09/07/2024 14:21:49 09/08/19 25 09/07/2024 urina lysis , dipst ick Ketone (reference range) negati ve Not Available [address] [place], [address], 09/07/2024 14:21:49 09/08/19 25 09/07/2024 urina lysis , dipst ick Bilirubin (reference range) negati ve Not Available [address] [place], [address], 09/07/2024 14:21:49 09/08/19 25 09/07/2024 urina lysis , dipst ick Glucose (reference range) negati ve Not Available [facility] [place] [address] [place], [address], 09/07/2024 14:21:49 09/08/19 25 09/07/2024 urina lysis , dipst ick Color (reference range: yellow-brown ) Yellow Not Available [facility] [address] [place], [address], 09/07/2024 14:21:49 09/28/19 25 09/27/2024 CBC AUTO W DIFF WBC 9.5 10 4.5-11 .5 Not Available [facility] (Lab Registration) [address] [place], [address], 09/27/2024 16:46:24 09/28/19 25 09/27/2024 CBC AUTO W DIFF RBC 4.05 10 4.25-5 .57 low Not Available [facility] (Lab Registration) [address] [place], [address], 09/27/2024 16:46:24 09/28/19 25 09/27/2024 CBC AUTO W DIFF HGB 12.2 g/dL 12.0-1 5.7 Not Available [facility] (Lab Registration) [address] [place], [address], 09/27/2024 16:46:24 09/28/19 25 09/27/2024 CBC AUTO W DIFF HCT 37.9 % 36.0-4 7.0 Not Available [facility] (Lab Registration) [address] [place], [address], 09/27/2024 16:46:24 09/28/19 25 09/27/2024 CBC AUTO W DIFF MCV 93.6 fL 80-95 Not Available [facility] (Lab Registration) [address] [place], [address], 09/27/2024 16:46:24 09/28/19 25 09/27/2024 CBC AUTO W DIFF MCH 30.1 pg 27.0-3 4.0 Not Available [facility] (Lab Registration) [address] [place], [address], 09/27/2024 16:46:24 09/28/19 25 09/27/2024 CBC AUTO W DIFF MCHC 32.2 g/dL 32.0-3 6.0 Not Available [facility] (Lab Registration) [address] [place], [address], 09/27/2024 16:46:24 09/28/19 25 09/27/2024 CBC AUTO W DIFF platelet count 159 10 150-45 0 Not Available [facility] (Lab Registration) [address] [place], [address], 09/27/2024 16:46:24 09/28/19 25 09/27/2024 CBC AUTO W DIFF RDW 13.3 % 12.3-1 5.1 Not Available [facility] (Lab Registration) [address] [place], [address], 09/27/2024 16:46:24 09/28/19 25 09/27/2024 CBC AUTO W DIFF MPV 10.6 fL 7.4-10 .4 high Not Available [facility] (Lab Registration) [address] [place], [address], 09/27/2024 16:46:24 09/28/19 25 09/27/2024 CBC AUTO W DIFF granulocyte% 66.6 % 40-75 Not Available [facility] (Lab Registration) [address] [place], [address], 09/27/2024 16:46:24 09/28/19 25 09/27/2024 CBC AUTO W DIFF lymphocyte% 23.1 % 15-57 Not Available [facility] (Lab Registration) [address] [place], [address], 09/27/2024 16:46:24 09/28/19 25 09/27/2024 CBC AUTO W DIFF monocyte% 7.2 % 4.0-12 .0 Not Available [facility] (Lab Registration) [address] [place], [address], 09/27/2024 16:46:24 09/28/19 25 09/27/2024 CBC AUTO W DIFF eosinophil% 2.4 % 0.0-4. 0 Not Available [facility] (Lab Registration) [address] [place], [address], 09/27/2024 16:46:24 09/28/19 25 09/27/2024 CBC AUTO W DIFF basophil% 0.5 % 0.0-1. 0 Not Available [facility] (Lab Registration) [address] [place], [address], 09/27/2024 16:46:24 09/28/19 25 09/27/2024 CBC AUTO W DIFF immature granulocytes % 0.2 % 0.0-0. 8 Not Available [facility] (Lab Registration) [address] [place], [address], 09/27/2024 16:46:24 09/28/19 25 09/27/2024 CBC AUTO W DIFF granulocyte# 6.32 10 Not Available [facility] (Lab Registration) [address] [place], [address], 09/27/2024 16:46:24 09/28/19 25 09/27/2024 CBC AUTO W DIFF lymphocyte# 2.19 10 Not Available [facility] (Lab Registration) [address] [place], [address], 09/27/2024 16:46:24 09/28/19 25 09/27/2024 CBC AUTO W DIFF monocyte# 0.68 10 Not Available [facility] (Lab Registration) [address] [place], [address], 09/27/2024 16:46:24 09/28/19 25 09/27/2024 CBC AUTO W DIFF eosinophil# 0.23 10 Not Available [facility] (Lab Registration) [address] [place], [address], 09/27/2024 16:46:24 09/28/19 25 09/27/2024 CBC AUTO W DIFF basophil# 0.05 10 Not Available [facility] (Lab Registration) [address] [place], [address], 09/27/2024 16:46:24 09/28/19 25 09/27/2024 CBC AUTO W DIFF immature granulocytes # 0.02 10 Not Available [facility] (Lab Registration) [address] [place], [address], 09/27/2024 16:46:24 09/28/19 25 09/27/2024 CBC AUTO W DIFF manual differential NO Not Available [facility] (Lab Registration) [address] [place], [address], 09/27/2024 16:46:24 09/28/19 25 09/27/2024 CBC AUTO W DIFF note Unles s other cornelius noted testi ng perfo rmed at: [facility] [address] [facility] [address] [place] [address] [phone] John preciado MD CLIA: [id number] Not Available [facility] (Lab Registration) [address] [place], [address], 09/27/2024 16:46:24 09/28/19 25 09/27/2024 COMP METAB OLIC PANEL sodium 138 mmol/ L 136-14 5 Not Available [facility] (Lab Registration) [address] [place], [address], 09/27/2024 16:58:55 09/28/19 25 09/27/2024 COMP METAB OLIC PANEL potassium 4.3 mmol/ L 3.5-5. 1 Not Available [facility] (Lab Registration) [address] [place], [address], 09/27/2024 16:58:55 09/28/19 25 09/27/2024 COMP METAB OLIC PANEL chloride 104 mmol/ L 98-107 Not Available [facility] (Lab Registration) [address] [place], [address], 09/27/2024 16:58:55 09/28/19 25 09/27/2024 COMP METAB OLIC PANEL carbon dioxide 28 mmol/ L 21-32 Not Available [facility] (Lab Registration) [address] [place], [address], 09/27/2024 16:58:55 09/28/19 25 09/27/2024 COMP METAB OLIC PANEL anion gap 6.0 Not Available [facility] (Lab Registration) [address] [place], [address], 09/27/2024 16:58:55 09/28/19 25 09/27/2024 COMP METAB OLIC PANEL glucose 88 mg/dL 70-110 Not Available [facility] (Lab Registration) [address] [place], [address], 09/27/2024 16:58:55 09/28/19 25 09/27/2024 COMP METAB OLIC PANEL blood urea nitrogen 20 mg/dL 7-18 high Not Available [facility] (Lab Registration) [address] [place], [address], 09/27/2024 16:58:55 09/28/19 25 09/27/2024 COMP METAB OLIC PANEL creatinine 0.8 mg/dL 0.6-1. 0 Not Available [facility] (Lab Registration) [address] [place], [address], 09/27/2024 16:58:55 09/28/19 25 09/27/2024 COMP METAB OLIC PANEL BUN/creatini ne ratio 25.0 9-21 high Not Available [facility] (Lab Registration) [address] [place], [address], 09/27/2024 16:58:55 09/28/19 25 09/27/2024 COMP METAB OLIC PANEL estimated glom filtration rate 75 mL/mi n >60- GFR LIMIT ATION : The eGFR equat ion CKD-E PI 2020 is not appli cable for pedia tric patie nts or great er than 90 years of age. The follo wing condi tions may alter the GFR resul t: extre mes in body size, malnu triti on or obesi ty, skele osvaldo muscl e disea se, parap legia or quadr ipleg ia, veget jesusita diet or rapid ly suarez ing kiney funct ion. Not Available [facility] (Lab Registration) [address], [place], [address], 09/27/2024 16:58:55 09/28/19 25 09/27/2024 COMP METAB OLIC PANEL osmolality (calculated) 289 mOsm/ kg 275-30 1 OSMOL ALITY IS A CALCU LATIO N UTILI ZING THE SERUM /PLAS MA SODIU M, GLUCO SE AND UREA NITRO GEN (BUN) LEVEL S. FOR THE MOST ACCUR ATE RESUL T A MEASU RED SERUM OSMOL ALITY IS SUGGE STED. Not Available [facility] (Lab Registration) [address], [place], [address], 09/27/2024 16:58:55 09/28/19 25 09/27/2024 COMP METAB OLIC PANEL total protein 6.9 g/dL 6.4-8. 2 Not Available [facility] (Lab Registration) [address] [place], [address], 09/27/2024 16:58:55 09/28/19 25 09/27/2024 COMP METAB OLIC PANEL albumin 3.4 g/dL 3.4-5. 0 Not Available [facility] (Lab Registration) [address] [place], [address], 09/27/2024 16:58:55 09/28/19 25 09/27/2024 COMP METAB OLIC PANEL calcium 9.6 mg/dL 8.5-10 .1 Not Available [facility] (Lab Registration) [address], [place], [address], 09/27/2024 16:58:55 09/28/19 25 09/27/2024 COMP METAB OLIC PANEL corrected calcium 10.1 mg/dL 8.5-10 .1 Not Available [facility] (Lab Registration) [address] [place], [address], 09/27/2024 16:58:55 09/28/19 25 09/27/2024 COMP METAB OLIC PANEL bilirubin total 0.6 mg/dL 0.4-1. 5 Not Available [facility] (Lab Registration) [address] [place], [address], 09/27/2024 16:58:55 09/28/19 25 09/27/2024 COMP METAB OLIC PANEL AST (SGOT) 39 U/L 15-37 high Not Available [facility] (Lab Registration) [address] [place], [address], 09/27/2024 16:58:55 09/28/19 25 09/27/2024 COMP METAB OLIC PANEL ALT (SGPT) 44 U/L 12-78 Not Available [facility] (Lab Registration) [address] [place], [address], 09/27/2024 16:58:55 09/28/19 25 09/27/2024 COMP METAB OLIC PANEL alk phosphatase 98 U/L 53-141 Not Available [facility] (Lab Registration) [address] [place], [address], 09/27/2024 16:58:55 09/28/19 25 09/27/2024 COMP METAB OLIC PANEL note Unles s other cornelius noted testi ng perfo rmed at: [facility] [address] [email or web address] [address] [phone] John preciado MD CLIA: [id number] Not Available [facility] (Lab Registration) [address] [place], [address], 09/27/2024 16:58:55 11/04/19 25 11/03/2024 PHOSP HORYL ATED TAU 217, PLASM A note Unles s other cornelius noted testi ng perfo rmed at: [facility] [address] [place] [address] [phone] John preciado MD CLIA: [id number] Not Available [facility] (Lab Registration) [address] , [place], [address], 11/09/2024 02:10:17 11/04/1911/09/2024 PHOSP HORYL ATED TAU 217, PLASM A phosphorylat ed tau 217 0.17 pg/mL 0.00-0 .18 Speci men Comme nt: Test( s) 35663 1-p-t au217 Speci men Comme nt: was [...] of >0.18 is a repor diana oral christianson for beta amylo id patho logy, a [...] limit is 0.03 pg/mL . Not Available [facility] (Lab Registration) [address], [place], [address], 11/09/2024 02:10:17 11/04/1911/09/2024 PHOSP HORYL ATED TAU [...] et al. Asso ciati on of Sirena emabrit Treat ment With Explo rator y Plasm a Bioma rkers in Early Sympt omati c Alzhe natasha Disea se: A Secon kortney Marylu sis of the TRAIL BLAZE R-ALZ Rando mized Clini jordan Trial . CARMELA Neuro l. 2021; 79(12 ):125 0-125 9. Perfo rmed at: [facility] [employer] [address] [facility], [place], [place] [id number] Lab Direc tor: Jg Yoo MD, Phone : [phone] Not Available [facility] (Lab Registration) [address], [place], [address], 11/09/2024 02:10:17 11/04/1911/03/2024 ATN PROFI LE information: COMMEN T Beta- [...] and p-tau 181: Tests perfo rmed by [facility] Elect nito milum inesc ence Immun oassa y (ECLI A). Value s obtai neda with diffe rent metho ds canno t be used inter suarez eable . These tests were devel oped and their perfo rmanc e aristides cteri stics deter mined by [facility]. They have not been clear ed or appro justin by the Food and Drug Admin istra tion. * p-tau 181 INFOR MATIO N: For indiv idual 0-55 years of age: 0.00- 0.95 pg/mL Refer ence inter nighat is based on a popul ation of osten sibly healt hy indiv idual s aged 20 [...] 7(9): 580-5 89. Reji VILLAGRAN Jr, Carmella ledesma DA, Cele Morris, et al. A/T/N : An unbia sed descr iptiv e class ifica tion schem e for Alzhe natasha disea se bioma rkers . Neuro logy. 2016 Dec 2;87( 5):53 9-547 . Not Available [facility] ([facility]) [address] [place], [address], 11/16/2024 04:08:46 11/04/19 25 11/08/2024 ATN PROFI LE A -- beta-amyloid 42/40 ratio 0.122 >0.102 Not Available [facility] ([facility]) [address] [place], [address], 11/16/2024 04:08:46 11/04/19 25 11/08/2024 ATN PROFI LE beta-amyloid 42 27.45 pg/mL Not Available [facility] ([facility]) [address] [place], [address], 11/16/2024 04:08:46 06/04/11/08/2024 ATN PROFI LE beta-amyloid 40 225.26 pg/mL Not Available [facility] ([facility]) [address] [facility], [place], [address], 11/16/2024 04:08:46 11/04/1911/15/2024 ATN PROFI LE T -- P-yio442 0.96 pg/mL 0.00-0 .97 Not Available [facility] ([facility]) [address] [facility], [place], [address], 11/16/2024 04:08:46 11/04/1911/15/2024 ATN PROFI LE N -- nfl, plasma 7.63 pg/mL 0.00-6 .04 above high normal Not Available [facility] ([facility]) [address] [facility], [place], [address], 11/16/2024 04:08:46 11/04/1911/16/2024 ATN PROFI LE atn summary[1] COMMEN T A- T- N+ A high NfL josé ntrat ion was obser justin. A joe l beta- amylo id 42/40 ratio and joe l pTau1 81 josé ntrat ion were [...] of clini jordan care. Not Available [facility] ([facility]) [address] [facility], [place], [address], 11/16/2024 04:08:46 11/04/1911/05/2024 P-TAU 217 [id number]-tvr729 COMMEN T pg/mL Test not perfo rmed. [...] limit is 0.03 pg/mL . Not Available [employer] [address] [place] [address], [address], 11/16/2024 04:08:47 11/04/19 25 11/05/2024 P-TAU 217 footnotes SENIOR EXECUTIVE ASSISTANT Not Available [employer] [address] [place], [address], 11/16/2024 04:08:47 11/04/19 25 11/05/[address] [...] facil ity were unsuc cessf ul. TEST: 72781 0 p-tau 217 Not Available [facility] [address] [facility], [place], [address], 11/16/2024 04:08:48 12/18/19 25 12/17/2024 BUN blood urea nitrogen 14 mg/dL -18 Not Available [facility] (Lab Registration) [address] , [place], [address], 12/17/2024 09:34:36 12/18/19 25 12/17/2024 BUN note Unles s other cornelius noted testi ng perfo rmed at: [facility] [address] [place] [address] [phone] John preciado MD CLIA: [id number] Not Available [facility] (Lab Registration) [address] , [place], [address], 12/17/2024 09:34:36 12/18/19 25 12/17/2024 CREAT ININE creatinine 0.9 mg/dL 0.6-1. 0 Not Available [facility] (Lab Registration) [address], [place], [address], 12/17/2024 09:34:37 12/18/19 25 12/17/2024 CREAT ININE estimated glom filtration rate 65 mL/mi n >60- GFR LIMIT ATION : The eGFR equat ion CKD-E PI 2020 is not appli cable for pedia tric patie nts or great er than 90 years of age. The follo wing condi tions may alter the GFR resul t: extre mes in body size, malnu triti on or obesi ty, skele osvaldo muscl e disea se, parap legia or quadr ipleg ia, veget jesusita diet or rapid ly suarez ing kiney funct ion. Not Available [facility] (Lab Registration) [address], [place], [address], 12/17/2024 09:34:37 12/18/19 25 12/17/2024 CREAT ININE note Unljavi s other cornelius noted testi ng perfo rmed at: [facility] [address] [place] [address] [phone] John preciado MD CLIA: [id number] Not Available [facility] (Lab Registration) [address] [place], [address], 12/17/2024 09:34:37 11/19/19 25 11/15/2024 XR, knee, [facility] [address] [facility] [place] [address] Phone: Fax: Name: ANIRUDH PANTOJA TTE Exam Date: : [birth year] Age 79 years Gender : F Access ion: [id number] Physic radha: SAMIRA FLORES Facili ty: [facility] Facili ty HSV: Outpat ient Exam: KNEE 3V RT Proced ure: XR KNEE 3 VIEWS RIGHT Exam Date: 12:31 PM CDT Indica tion: Swelli ng [...] 08:47 AM EDT RP Workst ation: [id number] Dictat ed By: Deena Mera Transc ribed By: Transc ribed On: 025 1:31 PM Electr onical ly signed by: Deena Mera 025 Thank you for referr ing ANIRUDH PANTOJA TTE to [facility]. Legall y authen ticate d by EBONY IRBY MD 11-15 13:31: 59 CC'ed Logic: Orderi ng Provid er: LATOYA HOGAN CC Provid er: AMBURG EY TAFFAN Y Attend ing Provid er: LATOYA HOGAN Referr ing Provid er: LATOYA HOGAN Admitt ing Provid er: LATOYA HOGAN [facility] (Radiology) [address] [place] [address] [place], [address], 11/22/2024 16:41:45 Result Notes Documentation Provider Name and Address Organization Details Recorded Time Xr, Knee, 3 View : [address] [place] [address] Name: PASCALE PANTOJA Exam Date: 11/15/2024 : 1945 Age 79 years Gender: F Physician: SAMIRA BULLARD Facility: [facility] Facility HSV: Outpatient Exam: KNEE 3V RT Procedure: XR KNEE 3 VIEWS RIGHT Exam Date: 11/15/2024 12:31 PM CDT Indication: Swelling of Rt. Knee Comparison: Radiographs of the right knee from 10/14/2023 Technique: 3 radiographic views of the right knee FINDINGS: Expansile intracortical lytic lesion in the right tibial metaphysis measuring 2.3 x 1.4 x 0.9 cm, previously 1.8 x 0.7 x 0.9 cm. Stable 0.5 cm oval lytic lesion in the right proximal medial tibial epiphysis. No suprapatellar joint space effusion. No acute fractures or dislocation. Mild osteoarthritis, not significantly progressed. IMPRESSION: 1. No acute fractures or dislocations. 2. Interval growth of an expansile intracortical lytic lesion in the right tibial metaphysis. Differential diagnosis includes plasmacytoma, enchondroma a nonossifying fibroma. Recommend further evaluation with MRI with and without contrast. 3. Stable 0.5 cm oval lytic lesion in the right proximal medial tibial epiphysis, which can be better evaluated at the time of the MRI. 4. Mild osteoarthritis without significant interval progression. Electronically signed by: Deena Ott MD 11/18/2024 08:47 AM EDT RP Dictated By: Deena Ott Transcribed By: Transcribed On: 11/15/2024 1:31 PM Electronically signed by: Deena Ott 11/15/2024 Thank you for referring PASCALE PANTOJA to [facility]. Legally authenticated by JUAN IRBY MD 2024-11-15 13:31:59 CC'ed Logic: Ordering Provider: JUAN MIGUEL HOGAN CC Provider: LLOYD WELLS Attending Provider: JUAN MIGUEL HOGAN Referring Provider: JUAN MIGUEL HOGAN Admitting Provider: JUAN MIGUEL DESAI NP [address] [place] [address], [phone] [place] - [facility] - [place] & [place] 11/22/2024 16:41:46 Problems Name Problem SNOMED Code Status Onset Date Resolution Date Notes Provider Name and Address Organization Details Recorded Time Cat scratch injury 592222536 Active Ang Hutchinso n null, [place] [facility] - [place] & [place] 5 14:03:06 Cellulitis of hand 49051060 Active Ang Hutchinso n [place] & [place] 5 14:03:06 Essential hypertensio n 90804207 Active 2023 John Tesfaye null, [place] & [place] 4 12:20:37 Graves' disease 645925026 Active 2023 John Tesfaye [place] & [place] 4 12:20:46 Chronic bronchitis 27862193 Active 2023 John Tesfaye null, [place] [facility] - [facility] & [place] 4 12:20:28 Hyperlipide aracelis 75840133 Active 2023 John Tesfaye null, [place] - [facility] & [place] 4 12:20:50 Restless legs 98236885 Active 2023 John Tesfaye null, [place] [facility] [facility] & [place] 4 12:20:58 Overactive urinary bladder 967180198 Active 2023 John Tesfaye null, [place] [facility] - [facility] & [place] 4 12:20:55 Gastroesoph ageal reflux disease without esophagitis 907663848 Active 2023 John Tesfaye null[place] [facility] [facility] & [place] 4 12:20:42 Chronic vertigo 2878862306026 5 Active 2023 John Tesfaye null[place] & [place] 4 12:20:32 Osteopenia 584396222 Active 2023 John Tesfaye null[place] [facility] & [place] 4 14:42:40 Generalized anxiety disorder 15587690 Active 2023 John Tesfaye null[place] [facility] [facility] & [place] 4 12:18:31 Osteoarthri tis of right knee joint 3666089498088 00 Active 2023 John Tesfaye null[place] [facility] [facility] & [place] 4 12:18:34 Eczema 52366343 Active 2023 Qasim Velasquez MD [address] [place] [address], [address], [place] - [facility] - [place] & [place] 4 11:05:16 Problem Notes None recorded. Procedures Surgical History Date Name Laterality Status Provider Name and Address Organization Details Recorded Time 025 Suture Removal completed RUSSELL DESAI NP [address] [facility], [place], [address], [place] [facility] [place] & [place] 10/01/2024 12:43:21 025 Medicare Annual Wellness Visit Health Risk Assessment completed Ang Valladares [place] & [place] 09/07/2024 14:21:11 019 Cholecystectomy completed Za Andres [place] & [place] 12/18/2023 12:29:03 019 Laparoscopic proc completed Jenny Yulisa [place] - [facility] - [place] & [place] 05/21/2023 14:58:36 016 vaginal hysterectomy completed Jenny Márquez [place] - [place] & [place] 05/21/2023 14:58:06 014 removal of ovarian cyst completed Jenny MORALES - [facility] - [place] & [place] 05/21/2023 14:57:53 012 Colonoscopy completed Za Campos [place] - [facility] - [place] & [place] 12/18/2023 12:28:42 001 lobectomy of thyroid gland completed Jenny Márquez [place] & [place] 05/21/2023 14:57:28 Imaging Results None recorded. Procedure Notes None recorded. Medical Equipment None Reported. Allergies Allergen ID Allergen Name Allergen Category Reaction Reaction Severity Criticality Documentation Date Start Date Code Code System Note Provider Name and Address Organization Details Recorded Time 061987 Substance with sulfonami de structure and antibacte rial mechanism of action (substanc e) medicatio n Not available Not available Not available 05/21/2023 14265 8003 SNOMED Jenny Márquez jose [place], [place] [facility] - [place] & [place] 3 14:56:34 831917 lisinopri l medicatio n Not available Not available Not available 08/27/2023 26142 RxNorm RUSSELL DESAI NP [address] [facility], [place], [address], [place] [facility] - [place] & [place] 4 14:34:00 Medications Name Sig Start Date [...] height Body mass index (BMI) Body weight Oxygen saturation Oxygen saturation in Arterial blood by Pulse oximetry Heart rate Systolic And Diastolic Provider Name and Address Organization Details Last Updated DateTime 5 144.78 cm 18 kg/m2 69212.1 7 g 99 % 99 % 72 /min 150/92 mm[Hg] Deepa Asif [facility] & [place] 5 11:56:09 Date Recorded Body height Body mass index (BMI) Body weight Body temperature Oxygen saturation Oxygen saturation in Arterial blood by Pulse oximetry Heart rate Systolic And Diastolic Provider Name and Address Organization Details Last Updated DateTime 5 144.78 cm 18 kg/m2 92165.1 7 g 97.5 [degF] 99 % 99 % 75 /min 138/84 mm[Hg] Angteetee chamberlain [facility] & [place] 5 14:15:52 Date Recorded Body height Body mass index (BMI) Body weight Body temperature Oxygen saturation Oxygen saturation in Arterial blood by Pulse oximetry Heart rate Systolic And Diastolic Provider Name and Address Organization Details Last Updated DateTime 5 144.78 cm 18.2 kg/m2 72207.4 8 g 98.1 [degF] 100 % 100 % 43 /min 110/68 mm[Hg] Marjan Mike [facility] & [place] 5 13:31:45 Date Recorded Body height Body mass index (BMI) Body weight Body temperature Oxygen saturation Oxygen saturation in Arterial blood by Pulse oximetry Heart rate Systolic And Diastolic Provider Name and Address Organization Details Last Updated DateTime 5 144.78 cm 18.2 kg/m2 84351.7 6 g 97.9 [degF] 98 % 98 % 68 /min 156/87 mm[Hg] Ang Cotto bulmaro [facility] & [place] 5 11:19:50 Date Recorded Systolic And Diastolic Provider Name and Address Organization Details Last Updated DateTime 11/15/2024 158/88 mm[Hg] LETITIA TAN [address] [place] [address], [phone] & [place] 11/15/2024 12:34:52 Date Recorded Body height Body mass index (BMI) Body weight Body temperature Oxygen saturation Oxygen saturation in Arterial blood by Pulse oximetry Heart rate Respiratory rate Systolic And Diastolic Provider Name and Address Organization Details Last Updated DateTime 5 144.78 cm 18.3 kg/m2 96073.2 g 97.3 [degF] 96 % 96 % 60 /min 14 /min 176/84 mm[Hg] Rosa Maria Collins [facility] & [place] 5 12:00:49 Social History Question Answer Notes LastModified by Organizat ion Details LastModified Time Tobacco Smoking Status Former Smoker Ang Valladares [facility], [facility] & [place] 09/07/2024 14:18:32 Do You Have An Advance Directive? No [email or web address] Information n ot available 08/14/2023 Do You Wear A Helmet When Biking? Yes [email or web address] Information not available 08/14/2023 Are You Blind Or Do You Have Difficulty Seeing? No [email or web address] Information n ot available 08/14/2023 Is Blood Transfusion Acceptable In An Emergency? No [email or web address] Information not available 08/14/2023 What Is Your Level Of Caffeine Consumption? None [email or web address] Information not available 08/14/2023 In The 14 Days Before Symptom Onset, Have You Had Close Contact With A Laboratory-confirm ed COVID-19 While That Case Was Ill? No [email or web address] Information n ot available 08/14/2023 In The 14 Days Before Symptom Onset, Have You Had Close Contact With A Person Who Is Under Investigation For COVID-19 While That Person Was Ill? No [email or web address] Information not available 08/14/2023 Have You Been To An Area Known To Be High Risk For COVID-19? No Information not available 08/14/2023 Are You Deaf Or Do You Have Serious Difficulty Hearing? No Information not available 08/14/2023 What Type Of Diet Are You Following? REGULAR [email or web address] Information n ot available 08/14/2023 Have You Processed Blood Or Body Fluids From An Ebola Virus Disease Patient Without Appropriate PPE? No [email or web address] Information not available 08/14/2023 Do You Reside In Or Have You Traveled To An Area Where Ebola Virus Transmission Is Active? No Information not available 08/14/2023 Have There Been Any Changes To Your Family Or Social Situation? No Information no t available 08/14/2023 What Is The Fluoride Status Of Your Home? Unknown [email or web address] Information not available 08/14/2023 Are There Any Guns Present In Your Home? No [email or web address] Information not available 08/14/2023 Have You Recently Or Are You Planning To Travel To An Area With Zika Virus? No [email or web address] Information not available 08/14/2023 Do You Use Insect Repellent Routinely? Yes [email or web address] Information not available 08/14/2023 Do You Feel Safe At Home? Yes [email or web address] Information not available 08/14/2023 Do You Have A Medical Power Of Mounter? No [email or web address] Information not available 08/14/2023 What Was The Date Of Your Most Recent Tobacco Screening? 11/03/2024 [email or web address] Information not available 11/03/2024 Do You Have Any Pets? Yes [email or web address] Information not available 08/14/2023 What Is Your Relationship Status? Unknown [email or web address] Information not available 08/14/2023 Do You Use Your Seat Belt Or Car Seat Routinely? Yes [email or web address] Information not available 08/14/2023 Do You Have Smoke And Carbon Monoxide Detectors In Your Home? No [email or web address] Information not available 08/14/2023 Are You Passively Exposed To Smoke? No [email or web address] Information no t available 08/14/2023 Do You Use Sunscreen Routinely? Yes Information not available 08/14/2023 Has Tobacco Cessation Counseling Been Provided? Yes [email or web address] Information not available 08/14/2023 On What Date Was Tobacco Cessation Counseling Provided? 11/03/2024 [email or web address] Information not available 11/03/2024 Do You Have Difficulty Walking Or Climbing Stairs? No [email or web address] Information not available 08/14/2023 Are You Currently In School? No [email or web address] Information not available 08/14/2023 Sex: Female Functional Status Question Answer Note LastModified by Organizat ion Details LastModified Time Do you use any illicit or recreational drugs? No eavqdiex19 Information not available 08/14/2023 Do you or have you ever used any other forms of tobacco or nicotine? No laavkxkz45 Information not available 08/14/2023 What is your level of alcohol consumption? None [email or web address] Information not available 08/14/2023 Are you currently employed? No [email or web address] Information not available 08/14/2023 Do you have transportation difficulties? No cuobsgzi17 Information not available 08/14/2023 Are you able to walk? YESWOREST fbtjvwyh00 Information not available 08/14/2023 Do you have difficulty doing errands alone? No [email or web address] Information not available 08/14/2023 Are you able to care for yourself? Yes [email or web address] Information n ot available 08/14/2023 Do you have difficulty dressing or bathing? No [email or web address] Information not available 08/14/2023 What is your exercise level? Occasional [email or web address] Information not available 08/14/2023 Mental Status Question Answer Note LastModified by Organizat ion Details LastModified Time Do you feel stressed (tense, restless, nervous, or anxious, or unable to sleep at night)? [id number] Information not available 08/14/2023 Do you have difficulty concentrating, remembering or making decisions? No [email or web address] Information no t available 08/14/2023 Family History Relationship Description Onset Age of this Age Resolved Age Notes LastModified by Organization Details LastModified Time Mother Congestive heart failure [email or web address] Not available 2024 11:38:56 Mother Malignant tumor of breast [email or web address] Not available 2024 11:38:56 Mother Dementia Not availabl e 10/01/2024 11:38:56 Father Seizure [email or web address] Not available 10/01/2024 11:38:56 Father Intracranial aneurysm [email or web address] Not available 2024 11:38:56 Brother Procedure on heart [email or web address] Not available 2024 11:38:56 Sister Asthma [email or web address] Not available 10/01/2024 11:38:56 Sister Diabetes mellitus [email or web address] Not available 2024 11:38:56 Sister Malignant neoplastic disease [email or web address] Not available 2024 11:38:56 Sister Osteoporosis [email or web address] Not avail able 08/10/2024 14:26:30 Son Depressive disorder [email or web address] Not available 2024 11:38:56 Son Diabetes mellitus Not available 2024 11:38:56 Medical History Condition Response Hypertension Y Gynecological HistoryNo gynecological history recorded. Obstetrics History GPAL:G 0 P 0 0 0 0 Immunizations Vaccine Type Date Status Note Provider Nam e and Address Organization Details Recorded Time Influenza, adjuvanted, trivalent, PF 02/21/2020 completed John [place]ise, [place] [facility] [place] & [place] 08/14/2023 12:20:11 COVID-19 vaccine, vector-nr, rS-Ad26, PF, 0.5 mL 09/02/2020 completed [place] & [place] 08/14/2023 12:20:11 Tdap 02/13/2023 completed [place] & [place] 08/14/2023 12:20:11 Influenza, high-dose, trivalent, PF 02/13/2023 completed [place] & [place] 08/14/2023 12:20:11 Influenza, high-dose, trivalent, PF 04/07/2017 completed [place] - [facility] - [place] & [place] 08/14/2023 12:20:11 Past Encounters Encounter ID Performer Location Encounter Start Date Encounter Closed Date Diagnosis/Indication Diagnosis SNOMED-CT Code Diagnosis ICD10 Code Diagnosis Note [id number] Qasim Velasquez MD [address] [place] [address] 06/05/2023 09:41:16 06/09/2023 08:43:12 Essential hypertension 35805863 I10 Blood pressure improved by my check 138/86 continue present meds check blood work see back in 4 months. Gastroesop hageal reflux disease without esophagitis 045712357 K21.9 Symptoms are controlled on present meds. Graves' disease 66294412 4 E05.00 patient had partial thyroidect gerber many years ago. She is still on propylthio uracil. We will check T4 and TSH. Hyperlipidemia [id number] E78.5 Check lipid profile Chronic bronchitis 26258 004 J42 recent ER visit for pneumonia. We will get chest x-ray report. Patient was treated with 2 antibiotic s and cough syrup. She is improved. She does report some fatigue. Restless legs 69588956 G 25.81 stable continue present meds Overactive urinary bladder 136338873 N32.81 stable continue present meds [id number] Qasim Velasquez MD [address] [place] [address] 07/08/2023 10:18:40 07/08/2023 10:50:03 Gastroesophageal reflux disease without esophagitis [id number] K21.9 symptom flare we will add Pepcid to the Protonix for 2 weeks. Graves' disease 99563706 4 E05.00 patient's TSH was slightly elevated. We will reduce PTU 2 every other day. See new prescripti on. Recheck TSH in 2 months Eczema 56554305 L30.9 On back and legs. We will treat with triamcinol one Essential hypertension 68356062 I10 Blood pressure is elevated today. We will add low-dose beta jose alberto q.h.s. [id number] Qasim Velasquez MD [address] [place] [address] 07/14/2023 11:30:22 07/18/2023 12:42:19 Essential hypertension 58906690 I10 patient states blood pressure still elevated. She has been a flare of her vertigo. She has had this on for some time. It is not severe. It does resolve when she rests. Patient reports blood pressures 150-160 over 90-100.Nikole castellon is taking the metoprolol night. She was really correlate the metoprolol with the vertigo.Co ntinue metoprolol . We will increase lisinopril to 20 mg Q morning monitor blood pressures and report if remain elevated. Chronic vertigo 36341350 11 9105 R42 continue meclizine p.r.n. [id number] Qasim Velasquez MD [place] [address] [facility] [place] [address] 07/23/2023 10:36:53 07/23/2023 11:46:26 Urinary tract infectious disease 91891798 N39.0 Dip urine is abnormal for blood and leukocytes . Hematuria co-occurrent and due to acute cystitis 3512907897 62110 N30.01 Patient has moderate to high-risk for complicati ons to infection. We will proceed with antibiotic treatment. Seek medical care if symptoms worsen. [id number] Qasim Velasquez MD [place] [address] [facility] [place] [address] 08/14/2023 12:13:38 08/20/2023 08:26:23 Graves' disease 604271929 E05.00 patient has reduced PTU to every other day. We will check TSH free T4. Await results recheck in 2-3 months. Osteopenia 432769980 M85 .80 insurance will no longer cover Prempro. We will split dose. Explained risks. Patient has had hysterecto my. She does get mammograms every.She desires to continue the hormones. Essential hypertension 49021775 I10 Patient has been monitoring blood pressures and is now taking 20 mg of lisinopril daily. She is still taking beta jose alberto in the evening. Blood pressures are looking better [id number] Wei Gonzales MD [place] [address] [facility] [place] [address] 08/27/2023 14:00:44 08/27/2023 14:44:59 Painful mouth 744122028 K13.79 no signs of thrush but due to recent antibiotic use we will txchange toothbrush Essential hypertension 26873825 I10 stop lisinopril ; mouth swelling likely pril reaction due to dose being increaseds tart losartan tomorrow in AM in replacemen t of lisinopril ER if any urgent signs or symptoms arise [id number] Qasim Velasquez MD [address] [place] [address] 09/30/2023 14:31:41 09/30/2023 18:32:38 Generalized anxiety disorder 10472819 F41.1 patient needs refill on hydroxyzin e. Allergic conjunctivitis of bilateral eyes 9778324486 16461 H10.13 Eyes watery and itchy. We will proceed with treatment with anti-infla mmatory antiallerg ic ophthalmic drops Osteopenia 217131112 M85 .80 patient wants Prempro back states it works best for her. [id number] Qasim Velasquez MD [address] [place] [address] 10/14/2023 11:43:11 10/14/2023 12:38:59 Osteopenia 927277534 M85.80 patient wants Prempro back states it works best for her. Osteoarthr itis of right knee joint 0669450791 48100 M17.11 right knee is enlarged tender might have a small infusion.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
--- OUTSIDE RECORDS SUMMARY | 2024-12-22 13:35 | XMS_ITS | Continuity of Care Document ---
Author Organization [facility] Address [address] [place] [address] Care Team Providers Care Improvement Spec Name Role Phone RUSSELL DESAI Primary Care Provider [phone] Assessment No assessment recorded. Plan of Treatment Reminders Order Date Submit Date Provider Last Modified By Organization Details Last Modified Time Details Appointments MENTAL [facility] 60 2024 12:00P M LIANA ANGEL Not available Not available Not available Lab None recorded . Referral None recorded . Procedures None recorded . Surgeries None recorded . Imaging XR, knee, 3 view - Right knee 2024 025 [facility] (Scheduling), [address] [place], [address], 11/18/2024 08:53:34 Medication Orders None recorded . Patient TargetsNo targets recorded. Patient InstructionsNo instructions recorded. Reason for Referral None Reported. Results Created Date Observation Date Name Description Value Unit Range Abnormal Flag Note LastModifiedBy Organization Detail LastModifiedTime 11/04/19 25 11/03/2024 PHOSP HORYL ATED TAU 217, PLASM A note Unles s other cornelius noted testi ng perfo rmed at: [facility] [address] [place] [address] [phone] John preciado MD CLIA: [id number] Not Available [facility] (Lab Registration) [address] [place], [address], 11/09/2024 02:10:17 11/04/19 25 11/09/2024 PHOSP HORYL ATED TAU 217, PLASM A phosphorylat ed tau 217 0.17 pg/mL 0.00-0 .18 Speci men Comme nt: Test( s) 61229 1-p-t au217 Speci men Comme nt: was [...] limit is 0.03 pg/mL . Not Available [facility] (Lab Registration) [address], [place], [address], 11/09/2024 02:10:17 11/04/19 25 11/09/2024 PHOSP HORYL ATED TAU 217, PLASM A footnotes Commen t . 1. Mata Daily et al. Diag nosti c Accur acy of a Plasm a Phosp horyl ated Tau 217 Immun oassa y for Alzhe natasha Disea se Patho logy. CARMELA neuro logy (2024 ). 2. Mata Daily, et al. Diff [...] Perfo rmed at: [facility] [address], [place] [place] [address] Lab Direc tor: Jg Yoo MD, Phone : [phone] Not Available [facility] (Lab Registration) [address] , [place], [address], 11/09/2024 02:10:17 11/04/19 25 11/03/2024 ATN PROFI [...] tia, it is impor tant to consi tair vario us facto rs such as medic [...] ds canno t be used [facility] . These tests were devel oped and [...] tion publi shed by Reji et al 2018 and updat ed in Kim corley et al 2020. * Kim corley H, Franco barroso J, Cele moon K, Freeman P, Reji VILLAGRAN Jr, Nishi Hoffman [...] se bioma rkers . Neuro logy. 2016 Jan 01;87( 5):53 9-547 . Not Available [facility] ([facility]) [address] [place], [address], 11/16/2024 04:08:46 11/04/19 25 11/08/2024 ATN PROFI LE A -- beta-amyloid 42/40 ratio 0.122 >0.102 Not Available [facility] ([facility]) [address] [place], [address], 11/16/2024 04:08:46 11/04/19 25 11/08/2024 ATN PROFI LE beta-amyloid 42 27.45 pg/mL Not Available [facility] ([facility]) [address] [place], [address], 11/16/2024 04:08:46 11/04/19 25 11/08/2024 ATN PROFI LE beta-amyloid 40 225.26 pg/mL Not Available [facility] ([facility]) [address] [place], [address], 11/16/2024 04:08:46 11/04/19 25 11/15/2024 ATN PROFI LE T -- P-atq774 0.96 pg/mL 0.00-0 .97 Not Available [facility] ([facility]) [address] [place], [address], 11/16/2024 04:08:46 11/04/19 25 11/15/2024 ATN PROFI LE N -- nfl, plasma 7.63 pg/mL 0.00-6 .04 above high normal Not Available [facility] ([facility]) [address] [facility], [place], [address], 11/16/2024 04:08:46 11/04/19 25 11/16/2024 ATN PROFI [...] of clini jordan care. Not Available [facility] ([facility]) [address] [facility], [place], [address], 11/16/2024 04:08:46 11/04/19 25 11/05/2024 P-TAU 217 P-cmg202 COMMEN T pg/mL Test not perfo rmed. [...] limit is 0.03 pg/mL . Not Available [facility] [address] [place], [address], 11/16/2024 04:08:47 11/04/1911/05/2024 P-TAU 217 footnotes [employer] Not Available [facility] [address] [facility], [place], [address], 11/16/2024 04:08:47 11/04/1911/05/[address] PROBL EM request problem COMMEN T Test not perfo rmed. One speci men was submi tted with reque sts for multi ple tests . The reque sted testi ng requi res a separ ate speci men for each test reque sted. Test not perfo rmed. Attem pts to conta ct your facil ity were unsuc cessf ul. TEST: 76312 0 p-tau 217 Not Available [facility] ([facility]) [address] [facility], [place], [address], 11/16/2024 04:08:48 11/19/1911/15/2024 XR, knee, 3 view [facility] [address] [place] [address] Phone: Fax: Name: ANIRUDH DOW TTE Exam Date: 025 : [birth year] Age 79 years Gender : F Access ion: [id number] Physic radha: SAMIRA [place] Facili ty: [facility] Facili ty HSV: Outpat ient Exam: [...] 08:47 AM EDT RP Workst ation: [id number] Dictat ed By: Deena Mera Transc ribed By: Transc ribed On: 025 1:31 PM Electr onical ly signed by: Deena Mera 025 Thank you for referr ANIRUDH [facility] to [facility]. Legall y authen ticate d by EBONY IRBY MD 2024-0 11-15 13:31: 59 CC'ed Logic: Orderi ng Provid er: LATOYA HOGAN CC Provid er: LIVEMITCH RONA VERA Y Attend ing Provid er: LATOYA HOGAN Referr ing Provid er: LATOYA HOGAN Admitt ing Provid er: LATOYA HOGAN [facility] (Radiology) [address] , [place], [address], 11/22/2024 16:41:45 Result Notes None recorded. Problems Name Problem SNOMED Code Status Onset Date Resolution Date Notes Provider Name and Address Organization Details Recorded Time Cat scratch injury 502653170 Active Ang Hutchinso n null, [place] - [facility] - [place] & [place] 5 14:03:06 Cellulitis of hand 56429078 Active Ang Hutchinso n null, [place] - [facility] - [facility] & [place] 5 14:03:06 Essential hypertensio n 80595029 Active 2023 John Tesfaye null, [place] [facility] [place] & [place] 4 12:20:37 Graves' disease 009389404 Active 2023 John Tesfaye null, [place] - [facility] - [facility] & [place] 4 12:20:46 Chronic bronchitis 34868527 Active 2023 John Tesfaye null, [place] [facility] - [facility] & [place] 4 12:20:28 Hyperlipide aracelis 05821020 Active 2023 John Tesfaye null, [place] [facility] - [place] & [place] 4 12:20:50 Restless legs 52678853 Active 2023 John Tesfaye null, [place] [facility] [place] & [place] 4 12:20:58 Overactive urinary bladder 606103037 Active 2023 John Tesfaye null, [place] - [facility] - [facility] & [place] 4 12:20:55 Gastroesoph ageal reflux disease without esophagitis 664715937 Active 2023 John Tesfaye null, [place] [facility] [place] & [place] 4 12:20:42 Chronic vertigo 2304350539229 5 Active 2023 John Tesfaye null, [place] [facility] [place] & [place] 4 12:20:32 Osteopenia 058677386 Active 2023 John Tesfaye null[place] [facility] [place] & [place] 4 14:42:40 Generalized anxiety disorder 48122679 Active 2023 John Tesfaye null[place] [facility] [place] & [place] 4 12:18:31 Osteoarthri tis of right knee joint 7988045476816 00 Active 2023 John Tesfaye null[place] [facility] [place] & [place] 4 12:18:34 Eczema 51092882 Active 2023 Qasim Velasquez MD [address] [place] [address], [phone] , [place] - [facility] - [facility] & [place] 4 11:05:16 Problem Notes None recorded. Procedures Surgical History Date Name Laterality Status Provider Name and Address Organization Details Recorded Time 025 Suture Removal completed RUSSELL DESAI NP [address] [place] [address], [phone], [place] - [facility] & [place] 10/01/2024 12:43:21 025 Medicare Annual Wellness Visit Health Risk Assessment completed Ang Valladares [place] - [facility] - [place] & [place] 09/07/2024 14:21:11 019 Cholecystectomy completed Za Campos [place] - [facility] - [place] & [place] 12/18/2023 12:29:03 019 Laparoscopic proc completed Jenny Márquez [place] [facility] & [place] 05/21/2023 14:58:36 016 vaginal hysterectomy completed Jenny Márquez [place] [facility] [place] [facility] & [place] 05/21/2023 14:58:06 014 removal of ovarian cyst completed Jenny Márquez [place] [facility] & [place] 05/21/2023 14:57:53 012 Colonoscopy completed Za Campos [place] - [facility] - [facility] & [place] 12/18/2023 12:28:42 001 lobectomy of thyroid gland completed Jenny MORALES [facility] & [place] 05/21/2023 14:57:28 Imaging Results None recorded. Procedure Notes None recorded. Medical Equipment None Reported. Allergies Allergen ID Allergen Name Allergen Category Reaction Reaction Severity Criticality Documentation Date Start Date Code Code System Note Provider Name and Address Organization Details Recorded Time 804000 Substance with sulfonami de structure and antibacte rial mechanism of action (substanc e) medicatio n Not available Not available Not available 05/21/2023 22491 8003 SNOMED Jenny Márquez null, [facility] & [place] 3 14:56:34 945408 lisinopri l medicatio n Not available Not available Not available 08/27/2023 12174 RxNorm RUSSELL DESAI NP [address] [place] [address], [phone] [place] [address] & [place] 4 14:34:00 Medications Name Sig Start Date [...] Not Available Not Available Vitals Date Recorded Systolic And Diastolic Provider Name and Address Organization Details Last Updated DateTime 11/15/2024 158/88 mm[Hg] LETITIA TAN [address] [place] [address], [phone], [place] - [facility] & [place] 11/15/2024 12:34:52 Date Recorded Body height Body mass index (BMI) Body weight Body temperature Oxygen saturation Oxygen saturation in Arterial blood by Pulse oximetry Heart rate Respiratory rate Systolic And Diastolic Provider Name and Address Organization Details Last Updated DateTime 5 144.78 cm 18.3 kg/m2 73903.2 g 97.3 [degF] 96 % 96 % 60 /min 14 /min 176/84 mm[Hg] Rosa Maria Collins [facility] & [place] 5 12:00:49 Social History Question Answer Notes LastModified by Organizat ion Details LastModified Time Tobacco Smoking Status Former Smoker Ang moise, [facility] & [place] 09/07/2024 14:18:32 Do You Have An Advance Directive? No [email or web address] Information n ot available 08/14/2023 Do You Wear A Helmet When Biking? Yes [email or web address] Information not available 08/14/2023 Are You Blind Or Do You Have Difficulty Seeing? No [email or web address] Information n ot available 08/14/2023 Is Blood Transfusion Acceptable In An Emergency? No [email or web address] Information not available 08/14/2023 What Is Your Level Of Caffeine Consumption? None [email or web address] Information not available 08/14/2023 In The 14 Days Before Symptom Onset, Have You Had Close Contact With A Laboratory-confirm ed COVID-19 While That Case Was Ill? No [email or web address] Information n ot available 08/14/2023 In The 14 Days Before Symptom Onset, Have You Had Close Contact With A Person Who Is Under Investigation For COVID-19 While That Person Was Ill? No [email or web address] Information not available 08/14/2023 Have You Been To An Area Known To Be High Risk For COVID-19? No [email or web address] Information not available 08/14/2023 Are You Deaf Or Do You Have Serious Difficulty Hearing? No [email or web address] Information not available 08/14/2023 What Type Of Diet Are You Following? REGULAR [email or web address] Information n ot available 08/14/2023 Have You Processed Blood Or Body Fluids From An Ebola Virus Disease Patient Without Appropriate PPE? No [email or web address] Information not available 08/14/2023 Do You Reside In Or Have You Traveled To An Area Where Ebola Virus Transmission Is Active? No [email or web address] Information not available 08/14/2023 Have There Been Any Changes To Your Family Or Social Situation? No [email or web address] Information no t available 08/14/2023 What Is The Fluoride Status Of Your Home? Unknown Information not available 08/14/2023 Are There Any Guns Present In Your Home? No [email or web address] Information not available 08/14/2023 Have You Recently Or Are You Planning To Travel To An Area With Zika Virus? No [email or web address] Information not available 08/14/2023 Do You Use Insect Repellent Routinely? Yes [email or web address] Information not available 08/14/2023 Do You Feel Safe At Home? Yes aeaabwcr38 Information not available 08/14/2023 Do You Have A Medical Power Of Hog Confinement System Manager? No [email or web address] Information not available 08/14/2023 What Was The Date Of Your Most Recent Tobacco Screening? 11/03/2024 [email or web address] Information not available 11/03/2024 Do You Have Any Pets? Yes [email or web address] Information not available 08/14/2023 What Is Your Relationship Status? Unknown [email or web address] Information not available 08/14/2023 Do You Use Your Seat Belt Or Car Seat Routinely? Yes [email or web address] Information not available 08/14/2023 Do You Have Smoke And Carbon Monoxide Detectors In Your Home? No [email or web address] Information not available 08/14/2023 Are You Passively Exposed To Smoke? No [email or web address] Information no t available 08/14/2023 Do You Use Sunscreen Routinely? Yes [email or web address] Information not available 08/14/2023 Has Tobacco Cessation Counseling Been Provided? Yes [email or web address] Information not available 08/14/2023 On What Date Was Tobacco Cessation Counseling Provided? 11/03/2024 [email or web address] Information not available 11/03/2024 Do You Have Difficulty Walking Or Climbing Stairs? No Information not available 08/14/2023 Are You Currently In School? No [email or web address] Information not available 08/14/2023 Sex: Female Functional Status Question Answer Note LastModified by Organizat ion Details LastModified Time Do you use any illicit or recreational drugs? No Information not available 08/14/2023 Do you or have you ever used any other forms of tobacco or nicotine? No [email or web address] Information not available 08/14/2023 What is your level of alcohol consumption? None bqheqprv17 Information not available 08/14/2023 Are you currently employed? No tkzaaypj90 Information not available 08/14/2023 Do you have transportation difficulties? No dgvruvkn94 Information not available 08/14/2023 Are you able to walk? YESWOREST lwzakrvl19 Information not available 08/14/2023 Do you have difficulty doing errands alone? No [email or web address] Information not available 08/14/2023 Are you able to care for yourself? Yes Information n ot available 08/14/2023 Do you have difficulty dressing or bathing? No nxdbuunv34 Information not available 08/14/2023 What is your exercise level? Occasional [email or web address] Information not available 08/14/2023 Mental Status Question Answer Note LastModified by Organizat ion Details LastModified Time Do you feel stressed (tense, restless, nervous, or anxious, or unable to sleep at night)? [id number] vrjiiwmq54 Information not available 08/14/2023 Do you have difficulty concentrating, remembering or making decisions? No zuhnlgzg23 Information no t available 08/14/2023 Family History Relationship Description Onset Age of this Age Resolved Age Notes LastModified by Organization Details LastModified Time Mother Congestive heart failure [email or web address] Not available 2024 11:38:56 Mother Malignant tumor of breast [email or web address] Not available 2024 11:38:56 Mother Dementia [email or web address] Not availabl e 10/01/2024 11:38:56 Father Seizure [email or web address] Not available 10/01/2024 11:38:56 Father Intracranial aneurysm Not available 2024 11:38:56 Brother Procedure on heart [email or web address] Not available 2024 11:38:56 Sister Asthma Not available 10/01/2024 11:38:56 Sister Diabetes mellitus [email or web address] Not available 2024 11:38:56 Sister Malignant neoplastic disease mevrecq60 Not available 2024 11:38:56 Sister Osteoporosis [email or web address] Not avail able 08/10/2024 14:26:30 Son Depressive disorder [email or web address] Not available 2024 11:38:56 Son Diabetes mellitus [email or web address] Not available 2024 11:38:56 Medical History Condition Response Hypertension Y Gynecological HistoryNo gynecological history recorded. Obstetrics History GPAL:G 0 P 0 0 0 0 Immunizations Vaccine Type Date Status Note Provider Nam e and Address Organization Details Recorded Time Influenza, adjuvanted, trivalent, PF 02/21/2020 completed John Tesfaye null, [place] [facility] [place] & [place] 08/14/2023 12:20:11 COVID-19 vaccine, vector-nr, rS-Ad26, PF, 0.5 mL 09/02/2020 completed John Tesfaye null, [place] [facility] [place] & [place] 08/14/2023 12:20:11 Tdap 02/13/2023 completed John Tesfaye [place] [facility] [place] & [place] 08/14/2023 12:20:11 Influenza, high-dose, trivalent, PF 02/13/2023 completed John Tesfaye [place] [facility] [place] & [place] 08/14/2023 12:20:11 Influenza, high-dose, trivalent, PF 04/07/2017 completed John Tesfaye null[place] [facility] [place] & [place] 08/14/2023 12:20:11 Past Encounters Encounter ID Performer Location Encounter Start Date Encounter Closed Date Diagnosis/Indication Diagnosis SNOMED-CT Code Diagnosis ICD10 Code Diagnosis Note [id number] Dalton Silva M.D [facility] [address] [place] [address] 10/27/2024 12:53:50 10/27/2024 14:41:16 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 457856769 S06.5X0S Hemorrhage into subarachnoid space of neuraxis 485452077 I60.9 [id number] RUSSELL DESAI NP [facility] [address] [facility] [place] [address] 11/03/2024 11:09:33 11/05/2024 08:44:13 Altered mental status 676707888 R41.82 concerns for delusional disorder, fantasy verses [...] recommend discussing advanced directives , power of title attorney [id number] LETITIA TAN [facility]- [facility] [address] [place] [address] 11/15/2024 11:42:06 11/16/2024 08:33:34 Swollen knee region 867690064 M25.461 soft hematoma on anterior medial side of right kneeX-ray of the right knee order sentPatien t denies any pain, warmth, tenderness , and limited ROMPatient denies any head injury or hip injuryFoll ow-up with office if swelling does not reduce within the next couple of days Health Concerns Section Related Observation LastModified by Organization Detai ls LastModified Time None Recorded Concern Status LastModified by Organization Details LastModified Time None Recorded Payers Encounter Date Sequence Insurance Name Policy Number Policy [place] Covered Member ID [place] Member ID Guarantor Name 11/15/2024 1 [employer] - [employer]OLD [employer]US (MEDICARE REPLACEMENT/ ADVANTAGE - HMO) Pascale Dow [id number] Pascale Dow Notes Date Note Type Note Provider Name and Address Organization Details Recorded Time 11/15/2024 text/html 79-year-old fema danitza past medical history of HTN, GERD, Graves [...] abdominal pain, and shortness breath. LETITIA TAN [address] [place] [address], [phone], [facility] - [facility] 11/15/2024 14:03:25 OBGyn Episode No OBEpisode recorded.
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
--- NOTE | 2024-12-22 13:45 | US_ITS ---
FINAL REPORT CLINICAL HISTORY: H/O Hyperthyroidism -- 1 yr follow up COMPARISON: 12/03/2023 FINDINGS: The patient is status post right lobectomy. The left lobe is mildly enlarged. There are multiple left lobe nodules identified, largest are hyperechoic or isoechoic in appearance compatible with TR 3 lesions. These measure up to 12 mm, was 13 mm. No new suspicious nodule identified. IMPRESSION: Multinodular goiter as above. Given size and morphology, there is no specific recommendation for further imaging follow-up. Reviewed, Interpreted and Dictated by Jessica Nguyen MD Transcribed by Belia Wood Authenticated and . [facility]
== END 2024-12-22 23:59 | disposition home or self-care (01) ==
LOC: RAD 13:33
PROVIDERS: PCP Nurse Practitioner Family; Visit Provider Nurse Practitioner
DX: E04.2 Nontoxic multinodular goiter (principal); E89.0 Postprocedural hypothyroidism
CPT/HCPCS: 76536